=== PATIENT | female | born 1985 | race Caucasian/White ===

== ENCOUNTER 2023-03-11 09:13 | Outpatient (OUT) | payer OTHER, SELFPAY | END 2023-03-11 09:14 | disposition home or self-care (01) | PROVIDERS: PCP Family Medicine; Visit Provider Radiology Diagnostic Radiology | DX: I83.813 Varicose veins of bilateral lower extremities with pain (principal) ==

== ENCOUNTER 2023-03-18 09:35 | Outpatient (OUT) | payer OTHER, SELFPAY ==
--- NOTE | 2023-03-18 09:37 | VEIN_ITS ---
Patient: LAISHA RICH Exam Date: 03/18/2023 : 1985 Gender:F Ordering : DR IRVING DANG M.D. Admission #: [id number] Family : Order #: [id number] CLICK HERE TO VIEW EXAM RADIOLOGY REPORT PROCEDURE: VC EXT VENOUS REFLUX RAFAEL LMTD COMPARISON: None. INDICATIONS: Pain due to varicose veins of bilateral legs I83.813 TECHNIQUE: Duplex imaging of the lower extremity to assess the deep and superficial venous system for the presence of deep or superficial venous incompetence and to document the location and severity of disease. The study includes evaluation of the great saphenous vein (GSV), anterior accessory saphenous vein (AASV) and small saphenous vein (SSV). Patient scanned in reverse Trendelenburg and standing. FINDINGS: RIGHT LOWER EXTREMITY: Saphenofemoral Junction Reflux: Yes 8.2mm 4.4 sec GSV: Diam (mm) Reflux/ Time (sec) Proximal Thigh 7.5 Yes 3.6 Mid Thigh 4.1 Yes 3.4 Distal Thigh 5.2 Yes 4.7 Prox Calf 3.8 Yes 3.2 Mid Calf 3.8 Yes 1.7 Saphenopopliteal Junction Reflux: 6.1mm Yes 1.6 SSV: Proximal Calf 5.5 Yes 0.6 Mid Calf 4.5 Yes 0.3 AASV: Not present Thrombi: No acute or chronic thrombus. Compressibility: Normal. Flow: Moderate deep venous reflux. Preforator: Mid medial lower leg 5.1 mm with 0.8s reflux. Tech Note: Incompetent varicose vein distal medial thigh measures 5.2 mm with 2.5s reflux. Proximal posterior calf varicose vein measures 4.3 mm with 0.5s reflux. Proximal posterior calf varicose vein measures 6.3 mm with 0.9s reflux. LEFT LOWER EXTREMITY: Saphenofemoral Junction Reflux: Yes 9.7 mm 1.3 sec GSV: Diam (mm) Reflux/Time (sec) Proximal Thigh 8.4 Yes 4.2 Mid Thigh 6.2 Yes 2.9 Distal Thigh 3.9 Yes 0.5 Prox Calf 3.4 Yes 0.3 Mid Calf 3.4 Yes 2.1 Saphenopopliteal Junction Relux: 2.7 mm No SSV: Proximal Calf 3.7 No Mid Calf 4.0 Yes 0.6 AASV: Not present Thrombi: No acute or chronic thrombus. Compressibility: Normal. Flow: Mild deep venous reflux. Manipulative Therapy Specialist: None. Tech Note: Incompetent varicose vein mid medial thigh measures 4.7 mm with 0.7s reflux. Proximal medial lower leg varicose vein measures 4.1 mm with 4.7s reflux. Proximal posterior calf varicosity measures 3.5 mm with 1.6s reflux. CONCLUSION: 1. Severe bilateral great saphenous vein venous insufficiency with associated dilatation and saphenofemoral junction reflux 2. Minimal venous insufficiency bilateral small saphenous veins 3. Moderate right and mild left deep vein reflux 4. Bilateral incompetent varicose veins, moderate to severe Dictated by: Irving Dang MD on 03/18/2023 at 10:45 Approved by: Irving Dang MD on 03/18/2023 at 10:48
--- NOTE | 2023-03-18 09:37 | VEIN_ITS ---
Patient: LAISHA RICH Exam Date: 03/18/2023 : 1985 Gender:F Ordering : DR IRVING DANG M.D. Admission #: [id number] Family : Order #: [id number] CLICK HERE TO VIEW EXAM RADIOLOGY REPORT PROCEDURE: [facility] - OFFICE VISIT INITIAL COMPARISON: None. PROGRESS NOTES: A 7-year-old female who presents with a 2 year history of lower extremity pain swelling varicose veins and subcutaneous edema. The patient's symptoms are bilaterally symmetric. The patient describes the pain as aching burning and heaviness with edema that presents after prolonged standing. The patient rates the pain as a 4 on a scale of 1-10. 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 The patient's symptoms are partially relieved by rest, leg elevation, compression stockings and over the counter ibuprofen. The patient denies any signs and symptoms to suggest arterial ischemia. The patient describes a family history significant for varicose veins in her mother. Seizure disorder in her father. Heart disease maternal grandfather, cancer maternal aunt. G3P 2. The patient has not smoked for 11 years. Occasional social alcohol use. No illicit drug use. Current medical history is significant for seasonal allergies, migraine headaches. Past surgical history is significant for hysterectomy, salpingectomy, rotator cuff repair, cholecystectomy and 2 C-sections. No history of deep venous thrombus or pulmonary embolus. See separate history and physical for medication list. No prior treatment for varicose or spider veins. The patient has worn compression stockings for several years. Nursing notes reviewed. After history and physical exam I discussed at length the pathophysiology of venous hypertension and possible treatments, therapies and strategies available. We discussed at length the importance of elevating the lower extremities above the level of the heart, increased physical activity and compression stocking use. We discussed alternatives of including conservative treatment with bilateral thigh-high compression stockings, surgical interventions including ligation and stripping and phlebectomy. We discussed intravenous laser ablation, micro foam chemical ablation and injection sclerotherapy at length. Risks benefits and alternatives were discussed in the patient's questions were answered Ultrasound venous reflux study performed same day was discussed at length with the patient. The report demonstrates severe bilateral great saphenous vein venous insufficiency with dilatation and saphenofemoral junction reflux. Minimal bilateral small saphenous vein venous insufficiency. Bilateral deep vein reflux. Bilateral moderate to severe incompetent varicose veins PHYSICAL EXAM: The right leg demonstrates no significant varicose veins. Scattered spider in reticular veins. Minimal subcutaneous edema of the ankle. No active ulceration or skin discoloration. The left leg demonstrates no significant varicose veins. Scattered spider in reticular veins. Minimal subcutaneous edema of the ankle. No active ulceration or skin discoloration. Both thighs, legs and feet were symmetrically warm to the touch. Good posterior tibial and dorsalis pedis pulses were present bilaterally. IMPRESSION: 1. Severe bilateral great saphenous vein venous insufficiency with dilatation and saphenofemoral junction reflux 2. Moderate to severe bilateral lower extremity varicose veins 3. Minimal bilateral lower extremity subcutaneous edema 4. No definite flow significant arterial disease 5. CEAP: C3, Ep, As, Pr PLAN: 1. Endovenous laser ablation right great saphenous vein followed by the left great saphenous vein 2. Bilateral micro foam chemical injection of incompetent varicose veins 3. Long-term use of bilateral 20-30 mm knee and or thigh-high compression stockings 4. Elevated legs and increased physical activity symptomatic relief Nurse notes, history and physical were reviewed and confirmed, see attached forms. The nurse was present throughout the physical exam and consultation Dictated by: Irving Dang MD on 03/18/2023 at 12:42 Approved by: Irving Dang MD on 03/18/2023 at 12:52
== END 2023-03-18 09:36 | disposition home or self-care (01) ==
LOC: VC 09:35
PROVIDERS: PCP Radiology Diagnostic Radiology; Visit Provider Radiology Diagnostic Radiology
DX: I83.813 Varicose veins of bilateral lower extremities with pain (principal)
CPT/HCPCS: 93970; G0463

== ENCOUNTER 2023-04-08 13:26 | Outpatient (OUT) | payer OTHER, SELFPAY ==
--- NOTE | 2023-04-08 13:46 | XR_ITS ---
The [address] [address] Patient Name: LAISHA RICH MRN: [id number] date: 1985 Sex: F Assigned Patient Location: LAB Current Patient Location: LAB Accession/Order Number: [id number] Exam Date: 04/08/2023 13:50 Report Date: 04/08/2023 15:03 At the request of: CINTIA AVELAR Procedure: XR abdomen 1V EXAM: XR abdomen 1V HISTORY: Left Lower Quadrant Pain R10.32 COMPARISON: None. TECHNIQUE: AP view of the abdomen. FINDINGS: Nonobstructive bowel gas pattern is noted. There is no suspicious calcification. The osseous structures are intact. XR/XR abdomen 1V IMPRESSION: Nonobstructive bowel gas pattern. Electronically authenticated by: ZEYAD OWUSU Date: 04/08/2023 15:03
[2023-04-08 14:06] LABS: Basophils Percent Auto 0.3 % (0.2-2.0); Eosinophils Absolute Auto 0.1 10^3/uL (0.0-0.7); Eosinophils Percent Auto 1.9 % (0.9-7.0); Hematocrit 38.8 % (36.0-48.0); Hemoglobin 13.9 g/dL (12.0-16.0); Immature Granulocytes Abs Auto 0.01 10^3/uL (0.00-0.03); Immature Granulocytes Pct Auto 0.2 % (0.0-0.5); Lymphocytes Absolute Auto 1.7 10^3/uL (1.2-3.8); Lymphocytes Percent Auto 25.5 % (20.5-60.0); Mean Corpuscular HGB Conc 35.8 g/dL (29.9-35.2); Mean Corpuscular Hemoglobin 33.7 pg (26.7-34.0); Mean Corpuscular Volume 94.2 fL (81.0-99.0); Mean Platelet Volume 9.4 fL (9.5-13.5); Monocytes Absolute Auto 0.4 10^3/uL (0.3-0.8); Monocytes Percent Auto 6.2 % (1.7-12.0); Neutrophils Absolute Auto 4.3 10^3/uL (1.4-6.5); Neutrophils Percent Auto 65.9 % (43.0-75.0); Platelet Count 213 10^3/uL (150-450); Red Blood Count 4.12 10^6/uL (4.20-5.40); Red Cell Distribution Width 12.7 % (11.0-15.0); White Blood Count 6.5 10^3/uL (4.0-11.0)
[2023-04-08 14:11] LABS: Bilirubin Urine NEGATIVE (NEGATIVE); Blood Urine NEGATIVE (NEGATIVE); Clarity Urine CLEAR (CLEAR); Color Urine LT. YELLOW (YELLOW); Glucose Urine UA NEGATIVE (NEGATIVE); Ketones Urine NEGATIVE (NEGATIVE); Leukocyte Esterase Urine NEGATIVE (NEGATIVE); Nitrite Urine NEGATIVE (NEGATIVE); Protein Urine NEGATIVE (NEG/TRACE); Urobilinogen Urine 0.2 EU/dL (0.2-1.0)
[2023-04-08 14:14] LABS: Urine Microscopic Indicated NO
[2023-04-08 15:40] LABS: Alanine Aminotransferase 20 U/L (14-59); Albumin Globulin Ratio 1.4; Albumin Level 4.1 g/dL (3.4-5.0); Alkaline Phosphatase 62 U/L (46-116); Anion Gap 9.1; Aspartate Amino Transferase 15 U/L (15-37); BUN Creatinine Ratio 11.4; Bilirubin Total 0.6 mg/dL (0.2-1.0); Calcium 9.1 mg/dL (8.5-10.1); Carbon Dioxide 28.5 mmol/L (21.0-32.0); Chloride 102 mmol/L (98-107); Estimated GFR (African America >60 (>=60); Estimated GFR (Non-African Ame >60 (>=60); Glucose 103 mg/dL (74-106); Potassium 3.6 mmol/L (3.5-5.1); Sodium 136 mmol/L (136-145); Total Protein 7.1 g/dL (6.4-8.2)
[2023-04-08 15:56] LABS: C Reactive Protein <0.2 mg/dL (<=1.0)
== END 2023-04-08 13:27 | disposition home or self-care (01) ==
LOC: LAB 13:28
PROVIDERS: PCP Radiology Diagnostic Radiology; Visit Provider Nurse Practitioner Family
DX: R10.32 Left lower quadrant pain (principal); R35.0 Frequency of micturition
CPT/HCPCS: 36415; 74018; 80053; 81003; 85025; 86140

== ENCOUNTER 2023-05-20 10:24 | Outpatient (OUT) | payer OTHER, SELFPAY ==
--- NOTE | 2023-05-20 | VEIN_ITS ---
[address] [address] Patient Name: LAISHA RICH MRN: [id number] date: 1985 Sex: F Assigned Patient Location: Current Patient Location: Accession/Order Number: [id number] Exam Date: 05/20/2023 10:30 Report Date: 05/20/2023 11:48 At the request of: TK BARRERA Procedure: VC Endovenous Ablation 1VeinRT EXAMINATION: VC Endovenous Ablation 1Vein, right great saphenous vein HISTORY: Pain due to varicose veins of bilateral legs I83.813 COMPARISON: No relevant comparison available. TECHNIQUE: The risks and benefits of the procedure had been previously discussed, and were rediscussed at length. Informed written consent was obtained. Marycruz Leary and Fidel Christie assisted. Time out procedure was performed. The right lower extremity was prepared and draped in the usual sterile fashion to allow knee flexion in the sterile field. Duplex ultrasound probe was draped in a sterile cover, sterile transmission gel was used. Venous mapping was performed with the areas of dilation and large tributaries marked. The total length was 23 cm from the entry mid calf to 3 cm below the saphenofemoral junction. The diameter of the greater saphenous vein ranged from 5-8 mm. A 30 gauge needle and 1% buffered lidocaine was used to anesthetize the entry site. A 4 mm incision was made with a scalpel and the saphenous vein was entered percutaneously under direct ultrasound guidance with a micropuncture set, a single stick was successful in gaining access. The wire could not be advanced through an area of narrowing and subsequent re-access was performed at the level of the knee. A micro-guide wire was inserted and the needle removed. A micro-set including a dilator was inserted over the microwire and the needle and dilator were removed. A 0.018 guide wire was inserted through the micro-set and threaded through the saphenous vein to the saphenofemoral junction. The dilator was removed and an introducer sheath was inserted over the wire until the end of the sheath entered the saphenofemoral junction. The dilator and wire were removed and the 600 micron fiber was introduced and placed and positioned so that it extended beyond the sheath and was 3 cm peripheral to the saphenofemoral femoral junction. Final position of the fiber was determined by ultrasound guidance and duplex imaging. Tumescent anesthetic was delivered by ultrasound guidance. 200 cc of fluid was delivered along the entire course of the saphenous vein. The solution consisted of 1000 cc of normal saline with 40 mL of 1% lidocaine and 20 mL of sodium bicarbonate. A final positioning check was made. The energy source was turned on by means of the foot pedal and the fiber and sheath were withdrawn. The total number of Joules delivered was 1087. The laser was active for 136 seconds under continuous pulse, average laser use of 8 J. Laser start time 11:25 AM 05/20/2023 . Laser stop time 11:27 AM 05/20/2023 . A duplex ultrasound revealed compressibility and flow at the saphenofemoral junction immediately after the procedure. Hemostasis at the access site was achieved. The skin incision of the saphenous vein was closed with a 4 x 4. A compression stocking was applied. Postop instructions were given. A follow up appointment was recommended and scheduled. The patient tolerated the procedure well and was discharged in good condition . VEIN/VC Endovenous Ablation 1VeinRT IMPRESSION: Technically successful endovenous laser ablation right great saphenous vein Electronically authenticated by: TK BARRERA Date: 05/20/2023 11:48
[2023-05-20] MEDS: 0.9 % SODIUM CHLORIDE 500 ML, LIDOCAINE HCL 20 ML, SODIUM BICARBONATE 10 MEQ INJ (11:16)
== END 2023-05-20 10:25 | disposition home or self-care (01) ==
LOC: VC 10:24
PROVIDERS: PCP Radiology Diagnostic Radiology; Visit Provider Radiology Diagnostic Radiology
DX: I83.813 Varicose veins of bilateral lower extremities with pain (principal)
CPT/HCPCS: 36478

== ENCOUNTER 2023-05-26 13:22 | Outpatient (OUT) | payer OTHER, SELFPAY ==
--- NOTE | 2023-05-26 13:24 | VEIN_ITS ---
Patient: LAISHA RICH Exam Date: 05/26/2023 : 1985 Gender:F Ordering : DR IRVING DANG M.D. Admission #: [id number] Family : Order #: [id number] CLICK HERE TO VIEW EXAM RADIOLOGY REPORT PROCEDURE: VC EXT VENOUS RT LMTD COMPARISON: None. INDICATIONS: I80.01 Phlebitis of superficial veins of rt lower extremity TECHNIQUE: Lower extremity durand scale and Duplex Doppler evaluation of the deep venous system from the inguinal ligament through the calf veins. FINDINGS: REGION: Right lower extremity. THROMBI: Negative for DVT. Heat induced thrombus visualized 2.6cm from the SFJ. The thrombus extends from groin to distal thigh. COMPRESSIBILITY: Noncompressible segments corresponding to thrombus FLOW: Absent flow corresponding to thrombus CONCLUSION: Post ablation occlusion of the right great saphenous vein with heat induced thrombus 2.6 cm from the saphenofemoral junction Dictated by: Irving Dang MD on 05/26/2023 at 13:48 Approved by: Irving Dang MD on 05/26/2023 at 13:50
--- NOTE | 2023-05-26 13:24 | VEIN_ITS ---
Patient: LAISHA RICH Exam Date: 05/26/2023 : 1985 Gender:F Ordering : DR IRVING DANG M.D. Admission #: [id number] Family : Order #: [id number] CLICK HERE TO VIEW EXAM RADIOLOGY REPORT PROCEDURE: [facility]ILITY EST L[facility]D [facility] - OFFICE VISIT FOLLOW UP COMPARISON: None. PROGRESS NOTES: The patient reports improvement in leg symptoms. The patient had some mild pain of the medial right thigh following intravenous laser ablation of the right great saphenous vein, successfully treated with over the counter ibuprofen. The patient has worn her compression stockings. The patient has followed our recommendations to walk 20-30 minutes once or twice per day since the procedure. Physical exam demonstrates several areas of bruising the largest measuring 10 x 8 cm medial right thigh, slightly warm to the touch. This likely represents mild thrombophlebitis related to the procedure. Thrombosed right great saphenous vein can be partially palpated Review of the ultrasound performed the same day demonstrates occlusive thrombus extending throughout the treated right great saphenous vein. Heat induced thrombus is 2.6 cm from the saphenofemoral junction. The patient expressed a desire to proceed with treatment of incompetent left great saphenous vein. VEIN/VC Facility EST LMTD IMPRESSION: 1. Successful ablation of the right great saphenous vein 2. Persistent incompetent left great saphenous vein. PLAN: Intravenous laser ablation left great saphenous vein Nurse notes, history and physical were reviewed and confirmed, see attached forms. The nurse was present throughout the physical exam and consultation Dictated by: Irving Dang MD on 05/26/2023 at 13:56 Approved by: Irving Dang MD on 05/26/2023 at 13:58
== END 2023-05-26 13:23 | disposition home or self-care (01) ==
LOC: VC 13:22
PROVIDERS: PCP Radiology Diagnostic Radiology; Visit Provider Radiology Diagnostic Radiology
DX: I80.01 Phlebitis and thrombophlebitis of superficial vessels of right lower extremity (principal)
CPT/HCPCS: 93971; G0463

== ENCOUNTER 2023-09-02 14:09 | Outpatient (OUT) | payer OTHER, SELFPAY ==
--- NOTE | 2023-09-02 14:23 | VEIN_ITS ---
[address] [address] Patient Name: LAISHA RICH MRN: [id number] date: 1985 Sex: F Assigned Patient Location: Current Patient Location: Accession/Order Number: [id number] Exam Date: 09/02/2023 14:23 Report Date: 09/02/2023 16:08 At the request of: TK BARRERA Procedure: VC Endovenous Ablation 1VeinLT EXAMINATION: VC Endovenous Ablation 1VeinLT HISTORY: I83.813 Bilateral painful varicose veins The risks and benefits of the procedure had been previously discussed, and were rediscussed at length. Informed written consent was obtained. Fidel Christie RN and Georgie Hester RDMS, RVT assisted. Time out procedure was performed. The left lower extremity was prepared and draped in the usual sterile fashion to allow knee flexion in the sterile field. Duplex ultrasound probe was draped in a sterile cover, sterile transmission gel was used. Venous mapping was performed with the areas of dilation and large tributaries marked. The total length was 71 cm from the entry 3 cm above the ankle to 3 cm below the Saphenofemoral junction. The diameter of the left great saphenous vein ranged from 8.4 mm. A 30 gauge needle and 1% buffered lidocaine was used to anesthetize the entry site. A 4 mm incision was made with a scalpel and the saphenous vein was entered percutaneously under direct ultrasound guidance with a micropuncture set, a single stick was successful in gaining access. A micro-guide wire was inserted and the needle removed. A micro-set including a dilator was inserted over the microwire and the needle and dilator were removed. A guide wire was inserted through the micro-set and guided through the saphenous vein to the saphenofemoral junction. The dilator was removed and an introducer sheath was inserted over the wire until the end of the sheath entered the saphenofemoral junction. The dilator and wire were removed and the 600 micron fiber was introduced and placed and positioned so that it extended beyond the sheath and was 3 cm distal to the saphenofemoral or saphenopopliteal junction. Final position of the fiber was determined by ultrasound guidance and duplex imaging. Tumescent anesthetic was delivered by ultrasound guidance. 475 cc of fluid was delivered along the entire course of the saphenous vein. The solution consisted of 1000 cc of normal saline with 40 mL of 1% lidocaine and 20 mL of sodium bicarbonate. A final positioning check was made. The energy source was turned on by means of the foot pedal and the fiber and sheath were withdrawn. The total number of Joules delivered was 3436. The laser was active for 429 seconds under continuous pulse, average laser use of 8 J. Laser start time 3:19 PM, 09/02/2023. Laser stop time 3:27 PM, 09/02/2023. A duplex ultrasound revealed compressibility and flow at the saphenofemoral junction immediately after the procedure. Hemostasis at the access site was achieved. The skin incision of the saphenous vein was closed with a 4 x 4. A compression stocking was applied. Postop instructions were given. A follow up appointment was recommended and scheduled. The patient tolerated the procedure well. Electronically authenticated by: KATIE LOPEZ Date: 09/02/2023 16:08
[2023-09-02] MEDS: LIDOCAINE HCL 1% 100 MG/10 ML MDV INJ (14:46)
[2023-09-02] MEDS: 0.9 % SODIUM CHLORIDE 500 ML, LIDOCAINE HCL 20 ML, SODIUM BICARBONATE 10 MEQ INJ (14:48)
== END 2023-09-02 14:10 | disposition home or self-care (01) ==
LOC: VC 14:22
PROVIDERS: PCP Radiology Diagnostic Radiology; Visit Provider Radiology Diagnostic Radiology
DX: I83.813 Varicose veins of bilateral lower extremities with pain (principal)
CPT/HCPCS: 36478

== ENCOUNTER 2023-09-10 09:26 | Outpatient (OUT) | payer OTHER, SELFPAY ==
--- NOTE | 2023-09-10 09:28 | VEIN_ITS ---
Patient Name: LAISHA RICH MR#: [id number] : 1985 Exam Date: 09/10/2023 Ordering Doctor: DR TK BARRERA M.D. RADIOLOGY REPORT PROCEDURE: VC EXT VENOUS LT LIMITED COMPARISON: None. INDICATIONS: Phlebitis of superficial veins of lt lower extremity I80.02 TECHNIQUE: Lower extremity durand scale and Duplex Doppler evaluation of the deep venous system from the inguinal ligament through the calf veins. FINDINGS: REGION: Left lower extremity. THROMBI: Negative for DVT. Heat induced thrombus visualized 2.7cm from SFJ. The heat induced thrombus extends from groin to distal calf. COMPRESSIBILITY: Non-compressible segments corresponding to thrombus FLOW: Areas of no flow corresponding to thrombus OTHER: CONCLUSION: 1. Successful post ablation occlusion of left great saphenous vein. Dictated by: Gibran Slater M.D. on 09/10/2023 at 10:18 Approved by: Gibran Slater M.D. on 09/10/2023 at 10:19
--- NOTE | 2023-09-10 09:28 | VEIN_ITS ---
Patient Name: LAISHA RICH MR#: [id number] : 1985 Exam Date: 09/10/2023 Ordering Doctor: DR TK BARRERA M.D. RADIOLOGY REPORT PROCEDURE: [facility] - OFFICE VISIT FOLLOW UP [facility] PROGRESS NOTES: The patient reports some improvement in leg symptoms. Patient also describes numbness along anterior medial margin of distal lower extremity, and tenderness/pulling sensation in proximal thigh. There has been interval reduction in varicosities. The patient has followed our recommendations to walk 20-30 minutes once or twice per day since the procedure. Physical exam demonstrates decrease in varicosities of the leg. Persistent superficial varicosities are identified along the legs bilaterally. Review of the ultrasound performed the same day demonstrates occlusive thrombus extending throughout the treated vein(s), see separate report, consistent with a successful ablation. No thrombus extending into or beyond the saphenofemoral junction. The patient's insurance did not approve any additional treatments (specifically microfoam chemical ablation). Patient was informed of remaining branch saphenous varicosities and will follow-up with us in the future as needed or with change in insurance coverage. VEIN/[facility] EST TD IMPRESSION: 1. Successful ablation of the left great saphenous vein(s). 2. Persistent superficial varicose veins and mild lower extremity symptoms. PLAN: Follow-up in future as needed. Nurse notes, history and physical were reviewed and confirmed, see attached forms. The nurse was present throughout the physical exam and consultation Dictated by: Gibran Slater M.D. on 09/10/2023 at 10:19 Approved by: Gibran Slater M.D. on 09/10/2023 at 10:23
--- OUTSIDE RECORDS SUMMARY | 2023-09-10 10:37 | XMS_ITS | CCD ---
Author Name Unknown Address [address] [facility] [address] [place] [address] Organization [facility] Care Team Providers Care Seed Cutter Name Role Phone Dubon, Migel T. Unavailable Unavailable Dubon, Migel T. Unavailable Unavailable Dubon, Migel T. Unavailable Unavailable Hoy, [phone] UNKNOWN Unavailable Unavailable Dubon, Migel T. Unavailable Unavailable Dubon, Migel T. Unavailable Unavailable Dubon, Migel T. Unavailable Unavailable Hoy, [phone] UNKNOWN Unavailable Unavailable PAY, DR GOMEZ Attending Unavailable ZIEBER, DR KATIE David Consulting Unavailable PAY, DR GOMEZ Admitting Unavailable HOY, DR PROCTOR Primary Care Unavailable PAY, DR GOMEZ Consulting Unavailable HOY, DR PROCTOR Admitting Unavailable HOY, DR PROCTOR Attending Unavailable HOY, DR PROCTOR Consulting Unavailable HOY, DR PROCTOR Primary Care Unavailable ZIEBER, DR KATIE David Consulting Unavailable HOY, DR PROCTOR Primary Care Unavailable HOY, DR PROCTOR Admitting Unavailable HOY, DR PROCTOR Attending Unavailable HOY, DR PROCTOR Consulting Unavailable HOY, DR PROCTOR Primary Care Unavailable CINTIA AVELAR Admitting Unavailable CINTIA AVELAR Attending Unavailable CINTIA AVELAR Consulting Unavailable PAO, DR PROCTOR Primary Care Unavailable HOY, DR PROCTOR Admitting Unavailable HOY, DR PROCTOR Attending Unavailable HOY, DR PROCTOR Consulting Unavailable HOY, DR PROCTOR Primary Care Unavailable PAO, DR PROCTOR Admitting Unavailable PAO, DR PROCTOR Attending Unavailable HOY, DR PROCTOR Consulting Unavailable CINTIA AVELAR Admitting Unavailable MERLYNY, DR PROCTOR Primary Care Unavailable CINTIA AVELAR Attending Unavailable CINTIA AVELAR Consulting Unavailable Problems Active Problems Problem Classification Problem Date Documented Da te Episodic/Chronic Joint disorders and dislocations; trauma-related (4 sources) Unspecified internal derangement of unspecified knee; Translations: [UNS INTERNAL DERANGEMENT UNS KNEE] Onset: 09-02-2021 Chronic Other circulatory disease (1 source) Other specified symptoms and signs involving the circulatory and respiratory systems; Translations: [OTH SPEC SX SIGNS INVLV CIRC RS] Onset: 04-09-2022 Episodic Other upper respiratory infections (1 source) Chronic sinusitis, unspecified; Translations: [CHRONIC SINUSITIS UNSPECIFIED] Onset: 01-03-2022 Chronic Other upper respiratory infections (4 sources) Acute recurrent frontal sinusitis; Translations: [ACUTE RECURRENT FRONTAL SINUSITIS] Onset: 06-04-2022 Episodic Unclassified (4 sources) CONTACT W/AND (SUSP) EXPOS COVID-19; Translations: [CONTACT W/AND (SUSP) EXPOS COVID-19] Onset: 10-08-2021 Unclassified (1 source) COUGH, UNSPECIFIED; Translations: [COUGH, UNSPECIFIED] Onset: 04-09-2022 Viral infection (1 source) COVID-19; Translations: [COVID-19] Onset: 04-09-2022 Past or Other Problems Problem Classification Problem Date Documented Da te Episodic/Chronic Fever of unknown origin (4 sources) Fever, unspecified; Translations: [FEVER UNSPECIFIED] Onset: 01-01-2022 Episodic Residual codes; unclassified (1 source) Pain, unspecified; Translations: [PAIN UNSPECIFIED] Onset: 10-03-2021 Episodic Unclassified (1 source) CONTACT W/AND (SUSP) EXPOS COVID-19; Translations: [CONTACT W/AND (SUSP) EXPOS COVID-19] Onset: 04-08-2022 Results Test Name Value Interpretation Reference Range Facility CT HEAD WO CONon 06-16-2022 CT HEAD WO CON EXAMINATION: CT HEAD WO CON HISTORY: HEADACHE ; head butted on nose 2 days ago COMPARISON: No relevant comparison available. TECHNIQUE: Axial CT images were obtained without IV contrast. Dose reduction techniques were achieved by using automated exposure control and/or adjustment of mA and/or kV according to patient size and/or use of iterative reconstruction technique. FINDINGS: BRAIN: No edema, hemorrhage, mass, acute infarction, or inappropriate atrophy. CSF SPACES: No hydrocephalus, subarachnoid hemorrhage, or mass. Appropriate for age. SKULL: No fracture, mass, or other significant visible lesion. SINUSES: No significant mucosal thickening or fluid on the limited views. ORBITS: No appreciable abnormality on the limited views. OTHER: Negative IMPRESSION: 1. No acute or suspicious abnormality of the brain. 2. No fracture of the calvarium or scalp hematoma. 3. Clear sinuses. Electronically authenticated by: KATIE LOPEZ Date: 2022-06-16 11:39 Normal [facility] Covid-19 PCR (CVDTB)on 05-22 SARS-CoV-2 (COVID-19) RNA ALEJANDRINA+probe Ql (Unsp spec) Not detected Normal NOT DETECTED [facility] Comment on above: Result Comment: This test is not yet kuldip roved or cleared by the [place] FDA. When there are no FDA-approved or cleared tests available, and other criteria are met, FDA can make tests available under an emergency access mechanism called an Emergency Use Authorization (EUA). The EUA for this test is supported by the Commander Internal Affairs of Health and Human Service's (HHS's) declaration that circumstances exist to justify the emergency use of in vitro diagnostics for the detection and/or diagnosis of the virus that causes COVID-19. This EUA will remain in effect (meaning this test can be used) for the duration of the COVID-19 declaration justifying emergency of IVDs, unless it is terminated or revoked by FDA (after which the test may no longer be used). When diagnostic testing is negative, the possibility of a false negative should be considered in the context of a patient's recent exposures and the presence of clinical signs and symptoms consistent with SARS-CoV-2. Performed By: #### C [facility] #### [facility] [address] [place] [address] Dr. Negrita Dao Covid-19 PCR (CVDTB)on 03-21 SARS-CoV-2 (COVID-19) RNA ALEJANDRINA+probe Ql (Unsp spec) Detected Critically abnormal NOT DETECTED [facility] Comment on above: Result Comment: This test is not yet kuldip roved or cleared by the [place] FDA. When there are no FDA-approved or cleared tests available, and other criteria are met, FDA can make tests available under an emergency access mechanism called an Emergency Use Authorization (EUA). The EUA for this test is supported by the [place] of Health and Human Service's declaration that circumstances exist to justify the emergency use of in vitro diagnostics for the detection and/or diagnosis of the virus that causes COVID-19. This EUA will remain in effect for the duration of the COVID-19 declaration justifying emergency of IVDs, unless it is terminated or revoked by the FDA (after which the test may no longer be used). Performed By: #### C V[facility] #### [facility] [address] [place] [address] Dr. Negrita Dao INFLUENZA A AND B AGon 03-21 INFLUENZA A AG Negative Normal NEGATIVE SEE COMMENT [facility] Comment on above: Performed By: #### INFLUAB #### [facility] [address] [place] [address] Dr. Negriat Dao INFLUENZA B AG Negative Normal NEGATIVE SEE COMMENT [facility] Comment on above: Performed By: #### INFLUAB #### [facility] [address] [place] [address] Dr. Negrita Dao INTERNAL CONTROLS Within Normal Limits Normal Within Normal Limits [facility] Comment on above: Performed By: #### INFLUAB #### [facility] [address] [place] [address] Dr. Negrita Dao Covid-19 PCR (CVDTB)on 12-20 SARS-CoV-2 (COVID-19) RNA ALEJANDRINA+probe Ql (Unsp spec) Not detected Normal NOT DETECTED [facility] Comment on above: Result Comment: This test is not yet kuldip roved or cleared by the [place] FDA. When there are no FDA-approved or cleared tests available, and other criteria are met, FDA can make tests available under an emergency access mechanism called an Emergency Use Authorization (EUA). The EUA for this test is supported by the [place] of Health and Human Service's (HHS's) declaration that circumstances exist to justify the emergency use of in vitro diagnostics for the detection and/or diagnosis of the virus that causes COVID-19. This EUA will remain in effect (meaning this test can be used) for the duration of the COVID-19 declaration justifying emergency of IVDs, unless it is terminated or revoked by FDA (after which the test may no longer be used). When diagnostic testing is negative, the possibility of a false negative should be considered in the context of a patient's recent exposures and the presence of clinical signs and symptoms consistent with SARS-CoV-2. Performed By: #### C VDTBH #### [facility] [address] [place] [address] Dr. Negrita Dao INFLUENZA A AND B AGon 01-01 [facility] SEE BELOW Normal [facility] Comment on above: Result Comment: Negative for Flu A prote in angiten. Infection due to Flu A cannot be ruled out. Flu A angiten in the sample may be below the detection limit of the test. Performed By: #### I NFLUAB #### [facility] [address] [place] [address] Dr. Negrita Dao INFLUBNEG SEE BELOW Normal [facility] Comment on above: Result Comment: Negative for Flu B prote in antigen. Infection due to Flu B cannot be ruled out. Flu B antigen in the sample may be below the detection limit of the test. Performed By: #### I NFLUAB #### [facility] [address] [place] [address] Dr. Negrita Dao INFLUENZA A AG Negative Normal NEGATIVE SEE COMMENT [facility] Comment on above: Performed By: #### INFLUAB #### [facility] [address] [place] [address] Dr. Negrita Dao INFLUENZA B AG Negative Normal NEGATIVE SEE COMMENT [facility] Comment on above: Performed By: #### INFLUAB #### [facility] [address] [place] [address] Dr. Negrita Dao INTERNAL CONTROLS Within Normal Limits Normal Within Normal Limits [facility] Comment on above: Performed By: #### INFLUAB #### [facility] [address] [place] [address] Dr. Negrita Dao Covid-19 PCR (CVDTB)on 09-21 SARS-CoV-2 (COVID-19) RNA ALEJANDRINA+probe Ql (Unsp spec) Not detected Normal NOT DETECTED [facility] Comment on above: Result Comment: This test is not yet kuldip roved or cleared by the [place] FDA. When there are no FDA-approved or cleared tests available, and other criteria are met, FDA can make tests available under an emergency access mechanism called an Emergency Use Authorization (EUA). The EUA for this test is supported by the [employer] of Health and Human Service's (HHS's) declaration that circumstances exist to justify the emergency use of in vitro diagnostics for the detection and/or diagnosis of the virus that causes COVID-19. This EUA will remain in effect (meaning this test can be used) for the duration of the COVID-19 declaration justifying emergency of IVDs, unless it is terminated or revoked by FDA (after which the test may no longer be used). When diagnostic testing is negative, the possibility of a false negative should be considered in the context of a patient's recent exposures and the presence of clinical signs and symptoms consistent with SARS-CoV-2. Performed By: #### C VDTB #### [facility] [address] [place] [address] Dr. Negrita Dao Covid-19 PCR ([facility])on 09-21 SARS-CoV-2 (COVID-19) RNA ALEJANDRINA+probe Ql (Unsp spec) Not detected Normal NOT DETECTED [facility] Comment on above: Result Comment: This test is not yet kuldip roved or cleared by the [place] FDA. When there are no FDA-approved or cleared tests available, and other criteria are met, FDA can make tests available under an emergency access mechanism called an Emergency Use Authorization (EUA). The EUA for this test is supported by the [place] of Health and Human Service's (HHS's) declaration that circumstances exist to justify the emergency use of in vitro diagnostics for the detection and/or diagnosis of the virus that causes COVID-19. This EUA will remain in effect (meaning this test can be used) for the duration of the COVID-19 declaration justifying emergency of IVDs, unless it is terminated or revoked by FDA (after which the test may no longer be used). When diagnostic testing is negative, the possibility of a false negative should be considered in the context of a patient's recent exposures and the presence of clinical signs and symptoms consistent with SARS-CoV-2. Performed By: #### C VDTBH #### [facility] [address] [place] [address] Dr. Negrita Dao Progress Note-Physicianon Progress Note-Physician Patient: KATHY RICH Age: 32 years Sex: Female : 1985 Associated Diagnoses: None Author: Douglas Joe JR, DO Postoperative Information Post Operative Note: Post Anesthesia Care Unit. Anesthetic utilized: General, Monitored anesthesia care. Health Status Allergies: Allergic Reactions (Selected)No Known Allergies Current medications: (Selected) PrescriptionsPrescribedPercocet 325 mg-5 mg Tab: 2 tab(s), Oral, q4hr, 50 tab(s), Refill(s) 0, ICD 10# M75.41 one to two po every 4 hour prn painDocumented MedicationsDocumentedImitrex: 100 mg, Oral, Once, PRN Migraine headache, Refills(s) 0, Migraine headacheibuprofen 200 mg oral capsule: 600 mg = 3 cap(s), Oral, BID, PRN as needed for pain, Refills(s) 0, Pain Problem list: All ProblemsRotator cuff tear, right / SNOMED CT 8838020215 / ConfirmedMigraines / SNOMED CT 76728299 / Confirmed Physical Examination Intake and Output Denies significant n/v and is tolerating p.o. No qualifying data available Respiratory: Adequate air exchange with faith of preoperative function.. Cardiovascular: Cardiovascular function is stable and has returned to preoperative levels.. Neurologic: Pt has returned to preoperative baseline.. Review / Management Condition: Stable. Assessment Anesthetic outcome No anesthetic complications noted. Plan Transfer/ Discharge: Patient can be discharged from PACU when criteria met. Condition good. Normal [facility] Comment on above: Result Comment: Electronically Signed By : Douglas Joe JR, DO\.br\Date and Time Signed: 10/15/17 12:30 EST Progress Note-Physician Patient: KATHY RICH Age: 32 years Sex: Female : 1985 Associated Diagnoses: None Author: Douglas Joe JR, DO Postoperative Information Post Operative Note: Post Anesthesia Care Unit. Anesthetic utilized: General, Monitored anesthesia care. Health Status Allergies: Allergic Reactions (Selected)No Known Allergies Current medications: (Selected) Inpatient IszomnspldpFrcnetvH6JP 1000 mL Soln-IV 1,000 mL: 1,000 mL, IV, 150 mL/hr, Routine, Start date 10/13/17 10:00:00 EST, 6.7 hour(s), Total volume (mL): 1,000Dilaudid 2 mg Injection: 0.4 mg = 0.2 mL, Injection, IV Push, q4min PRN Pain for 8 hour(s), Stop date 10/13/17 20:31:00 EST, Routine, Start date 10/13/17 12:32:00 ESTDilaudid 2 mg Injection: 1 mg = 0.5 mL, Injection, IV Push, q2hr PRN Pain - Severe for 5 day(s), Stop date 10/18/17 9:29:00 EST, Routine, Start date 10/13/17 9:30:00 ESTLactated Ringers IV Luana 1000 mL 1,000 mL: 1,000 mL, IV, 100 mL/hr, Routine, Start date 10/13/17 12:32:00 EST, 10 hour(s), Total volume (mL): 1,000Percocet 325 mg-5 mg Tab: 1 tab(s), Tab, Oral, q6hr PRN Pain - Moderate for 5 day(s), Stop date 10/18/17 9:29:00 EST, Routine, Start date 10/13/17 9:30:00 ESTPercocet 325 mg-5 mg Tab: 2 tab(s), Tab, Oral, q6hr PRN Pain - Moderate for 5 day(s), Stop date 10/18/17 9:29:00 EST, Routine, Start date 10/13/17 9:30:00 ESTPhenergan 25 mg/mL Injection: 12.5 mg = 0.5 mL, Injection, IV Push, q2min PRN Other (see comment) for 2 dose(s), Stop date Limited # of times, Routine, Start date 10/13/17 12:32:00 ESTZofran 4 mg/2 mL Injection: 4 mg = 2 mL, Injection, IV Push, q4hr PRN Nausea/Vomiting, Routine, Start date 10/13/17 9:30:00 ESTPrescriptionsPrescribedPercocet 325 mg-5 mg Tab: 2 tab(s), Oral, q4hr, 50 tab(s), Refill(s) 0, ICD 10# M75.41 one to two po every 4 hour prn painDocumented MedicationsDocumentedImitrex: 100 mg, Oral, Once, PRN Migraine headache, Refills(s) 0, Migraine headacheibuprofen 200 mg oral capsule: 600 mg = 3 cap(s), Oral, BID, PRN as needed for pain, Refills(s) 0, Pain Problem list: All ProblemsRotator cuff tear, right / SNOMED CT 9618802429 / ConfirmedMigraines / SNOMED CT 98418556 / Confirmed Physical Examination Intake and Output Denies significant n/v and is tolerating p.o. Vitals Signs (last 24 hrs) Last Charted Minimum MaximumTemp 36.9 (OCT 13 10:20) 36.9 (OCT 13 10:20) 36.9 (OCT 13 10:20)Heart Rate 67 (OCT 13 11:54) 67 (OCT 13 11:54) 77 (OCT 13 10:22)Resp Rate 18 (OCT 13 10:22) 18 (OCT 13 10:22) 18 (OCT 13 10:22)SBP 121 (OCT 13 10:24) 121 (OCT 13 10:24) 137 (OCT 13 10:20)DBP 79 (OCT 13 10:24) 79 (OCT 13 10:24) 86 (OCT 13 10:20)MAP 93 (OCT 13 10:24) 93 (OCT 13 10:24) 103 (OCT 13 10:20)SpO2 99 (OCT 13 11:54) 97 (OCT 13 10:22) 100 (OCT 13 11:37) Pain assessment: Pain Assessment 10/13/2017 10:22 EST Preliminary Pain Scale 4 10/13/2017 10:22 EST Pain Symptoms Self Report Yes, able to self report Primary Pain Location Shoulder Primary Pain Laterality Right Patient Preferred Pain Tool Numeric rating Numeric Pain Scale 4 Numeric Pain Score 4 . Respiratory: Adequate air exchange with faith of preoperative function.. Cardiovascular: Cardiovascular function is stable and has returned to preoperative levels.. Neurologic: Pt has returned to preoperative baseline.. Review / Management Condition: Stable. Assessment Anesthetic outcome No anesthetic complications noted. Plan Transfer/ Discharge: Patient can be discharged from PACU when criteria met. Condition good. Normal Jonnathan david [facility] Coding Summary.on 10-14-2017 Coding Summary. CODING DATE: 018 FINAL [facility] STATUS: Home (Routine DC) PAYOR: Worker's Compensation APC DESCRIPTION 5113 Level 3 Musculoskeletal Procedures ADMIT DX: REASON FOR VISIT DX: M75.101 Unspecified rotator cuff tear or rupture of right shoulder, not specified as traumatic FINAL DX: PRINCIPAL: S46.011A Strain of muscle(s) and tendon(s) of the rotator cuff of right shoulder, initial encounter SECONDARY: M75.41 Impingement syndrome of right shoulder X58.XXXA Exposure to other specified factors, initial encounter Y99.0 Civilian activity done for income or pay PYMT PROC APC STAT DESCRIPTION DOCTOR NAME DATE 72603 Arthroscopy, shoulder, Migel Dubon DO T. 10/13/2017 surgical; decompression of subacromial space with partial acromioplasty, with coracoacromial ligament (ie, arch) release, when performed (List separately in addition to code for primary procedure) RT Right side (used to identify procedures performed on the right side of the body) 41925 5113 J1 Arthroscopy, shoulder, Migel Dubon DO T. 10/13/2017 surgical; distal claviculectomy including distal articular surface (Annalisa procedure) RT Right side (used to identify procedures performed on the right side of the body) 97985 5113 J1 Arthroscopy, shoulder, Migel Dubon DO T. 10/13/2017 surgical; debridement, extensive RT Right side (used to identify procedures performed on the right side of the body) 50730 Injection, anesthetic Migel Dubon DO 10/13/2017 agent; brachial plexus, single RT Right side (used to identify procedures performed on the right side of the body) XP Separate Practitioner * 28493 Anesthesia for open or Migel Dubon DO. 10/13/2017 surgical arthroscopic procedures on humeral head and neck, sternoclavicular joint, acromioclavicular joint, and shoulder joint; not otherwise specified NOTE: The code number assigned matches the documented diagnosis and / or procedure in the patient's chart. However, the narrative phrase printed from the coding software may appear abbreviated, or result in slightly different terminology. Coded By: Giovanna Barbosa Date Saved: 10/14/2017 04:00 pm Normal [facility] Coding Summary.on 10-13-2017 Coding Summary. CODING DATE: 018 FINAL [facility] STATUS: Home (Routine DC) PAYOR: Worker's Compensation ADMIT DX: REASON FOR VISIT DX: Z01.818 Encounter for other preprocedural examination FINAL DX: PRINCIPAL: Z01.818 Encounter for other preprocedural examination SECONDARY: PROCEDURES DOCTOR NAME DATE NOTE: The code number assigned matches the documented diagnosis and / or procedure in the patient's chart. However, the narrative phrase printed from the coding software may appear abbreviated, or result in slightly different terminology. Coded By: Britany Kelley Date Saved: 10/13/2017 07:55 am Normal [facility] Inpatient Patient Summaryon 10-13-2017 Inpatient [facility] Dis[facility] InstructionsPERSON INFORMATION Name: KATHY RICH PHYSICIANS Admitting Physician: Migel Dubon DOAttending Physician: Migel Dubon DO PCP: Carlyn Cooper MD Diagnosis: Impingement syndrome of right shoulder Comment: PATIENT EDUCATION INFORMATIONInstructions:Ling - After Your Shoulder Arthroscopy (Revised 10/19/14) (CUSTOM)Medication Leaflets:Follow up:With: Address: When: Migel Dubon [address] [place] [address] Stampt (1) Comments: Keep scheduled appointment MEDICATION LISTFill New Prescriptions:acetaminophen-oxycodo ne (Percocet 325 mg-5 mg Tab) 2 tab(s) By Mouth every 4 hours ICD 10# M75.41 one to two po every 4 hour prn painComment: Normal [facility] Main OR Intraoperative Recor don 10-13-2017 Main OR Intraoperative Record IntraOp Document Type FT Summary Primary Physician: Migel Dubon DO Finalized Date/Time: 10/13/17 14:31:35 Pt. Name: HILARIOMIKE ARENASMELODY Michaels/Sex: 1985 Female Med Rec #: [id number] Physician: Migel Dubon DO Financial #: [id number] Pt. Type: A Room/Bed: [facility]6/01 Admit/Disch: 10/13/17 10:08:27 - Institution: Case Times FT Entry 1 Patient Times In Room 10/13/17 11:58:00 Out Room 10/13/17 12:49:00 Procedure Times Start 10/13/17 12:22:00 Stop 10/13/17 12:44:00 Anesthesia Times Start 10/13/17 11:58:00 Stop 10/13/17 12:50:00 Block Timeout w/ 10/13/17 11:37:00 Anesthesia Last Modified By: Iesha Barrios CST 10/13/17 12:50:02 General Comments: 10/13/2017 Chart opened to review and send charges Sara jacobson Case Attendance FT Entry 1 Entry 2 Entry 3 Case Attendee Tatyana CORONADO DO, Douglas Dubon DO, Migel White DO, Irving Spence Role Performed Anesthesiologist of Surgeon - Primary Surgeon - Assist 1 Record Time In 10/13/17 11:58:00 10/13/17 11:58:00 10/13/17 11:58:00 Time Out 10/13/17 12:49:00 10/13/17 12:49:00 10/13/17 12:49:00 Procedure SHOULDER ARTHROSCOPY W/ SHOULDER ARTHROSCOPY W/ SHOULDER ARTHROSCOPY W/ POSSIBLE REPAIR(Right) POSSIBLE REPAIR(Right) POSSIBLE REPAIR(Right) Comments Last Modified By: Rashad RN, Mendel Solorzano RN, Mendel Flores RN 10/13/17 12:50:05 10/13/17 12:50:05 10/13/17 12:50:05 Entry 4 Entry 5 Entry 6 Case Attendee Rashad ABDUL, Mendel Rao RN, Una Cooper CST Role Performed Motorized Squad Captain - Primary Motorized Squad Captain - Primary Scrub - Primary Time In 10/13/17 11:58:00 10/13/17 11:58:00 10/13/17 11:58:00 Time Out 10/13/17 12:49:00 10/13/17 12:49:00 10/13/17 12:49:00 Procedure SHOULDER ARTHROSCOPY W/ SHOULDER ARTHROSCOPY W/ SHOULDER ARTHROSCOPY W/ POSSIBLE REPAIR(Right) POSSIBLE REPAIR(Right) POSSIBLE REPAIR(Right) Comments Last Modified By: Rashad ABDUL, Mendel Solorzano RN, Mendel Flores RN 10/13/17 12:50:05 10/13/17 12:50:05 10/13/17 12:50:05 General Comments: JUAN ALBERTO ROCHA, ARTHREX REP Perioperative Protocols FT Pre-Care Text: Implements protective measures prior to operative or invasive procedure, confirms identity before the operative or invasive procedure, verifies operative procedure, surgical site, and laterality Entry 1 Procedure(s) SHOULDER ARTHROSCOPY W/ Patient Identity Birthday, ID Band POSSIBLE REPAIR(Right) Verified (select at Check, Patient least 2): Participation Consents / H and P Anesthesia Consent, Operative Site Present Verified HandP, Surgery/Procedure Marking Verified Consent, Transfusion Consent Surgical Site Yes Laterality Verified Yes Verified Procedure Verified Yes Correct Patient Yes Position Verified Availability Equipment, Implant, Prep Dry Yes Verified (If Medication Applicable) PreOp Antibiotic Yes Time Out Douglas Joe JR, DO, Migel Dubon DO, Irving White DO, Lunato RN, Jalen Hale RN, Shabbir Vital CST, Una Time Out Complete 10/13/17 12:15:00 Outcomes Met? Yes Last Modified By: Mendel Solorzano RN 10/13/17 12:16:17 Post-Care Text: The patient is free from signs and symptoms of injury caused by extraneous objects Allergy Information FT Pre-Care Text: Verifies allergies Entry 1 Allergies Reviewed? Yes Allergies Reviewed Self/Patient With Outcomes Met? Yes Last Modified By: Mendel Solorzano RN 10/13/17 11:41:45 Post-Care Text: The patient received appropriate medication(s) safely administered during the perioperative period Surgical Procedures FT Entry 1 Procedure Description Procedure SHOULDER ARTHROSCOPY W/ Modifiers Right POSSIBLE REPAIR Surgeon Description RIGHT SHOULDER ARTHROSCOPY, SUBACROMIAL DECOMPRESSION, DEBRIDEMENT AND PARTIAL DISTAL CLAVICULECTOMY Primary Procedure Yes Primary Surgeon Migel Dubon DO Start 10/13/17 12:22:00 Stop 10/13/17 12:44:00 Anesthesia Type General Surgical Service Orthopedics Wound Class 1 - Clean Last Modified By: Mendel Solorzano RN 10/13/17 12:55:55 General Case Data FT Pre-Care Text: Classifies surgical wound, implements aseptic technique, initiates traffic control Entry 1 Case Information OR OR 4 FT Case Level Level 2 Wound Class 1 - Clean Specialty Orthopedics ASA Class 1 Preop Diagnosis RIGHT SHOULDER PARTIAL Postop Same As Preop Yes ROTATOR CUFF TEAR Postop Diagnosis RIGHT SHOULDER PARTIAL Outcomes Met? Yes ROTATOR CUFF TEAR Last Modified By: Mendel Solorzano RN 10/13/17 12:57:34 Post-Care Text: The patient is free from signs and symptoms of infection Skin Assessment (Pre Procedure) FT Pre-Care Text: Implements protective measures to prevent skin/ tissue injury due to thermal or mechanical sources Evaluates for signs and symptoms of physical injury to skin and tissue Entry 1 Skin Integrity Intact, [place], Warm, and Skin Abnormality No Dry Outcomes Met? Yes Last Modified By: Mendel Solorzano RN 10/13/17 11:42:14 Post-Care Text: The patient is free from signs and symptoms of injury caused by extraneous objects Patient Positioning FT Pre-Care Text: Identifies physical alterations that require additional precautions for procedure-specific positioning, verifies presence of prosthetics or corrective devices, positions the patient, evaluates the patient for signs and symptoms of injury as a result of positioning Entry 1 Procedure SHOULDER ARTHROSCOPY W/ Body Position Beach Chair POSSIBLE REPAIR(Right) Feet Uncrossed? Yes Left Arm Position Extended on Padded Arm Board Right Arm Position Held on Field Left Leg Position Extended Right Leg Position Extended Positioning Device Safety Strap, Spider Positioner Leg Support, Spider Shoulder Positioner Press Points Checked Yes By Douglas Joe JR, DO, Lunato RN, Jalen Hale RN, Maddie David Outcomes Met? Yes Last Modified By: Mendel Solorzano RN 10/13/17 11:42:51 Post-Care Text: The patient is free from signs and symptoms of injury related to positioning Patient Care Devices FT Pre-Care Text: Implements protective measures to prevent skin/ tissue injury due to thermal or mechanical sources Entry 1 Entry 2 Entry 3 Equipment Type ARTHREX DUALWAVE ARTHROCARE GENERATOR CAUTERY UNIT[F] IRRIGATION PUMP[F] UNIT[F] Equipment Number CART 2 CART 2 BOOM 4 Equipment Setting Outcomes Met? Yes Yes Yes Last Modified By: Mendel Solorzano RN, RN, Mendel Flores RN 10/13/17 11:45:48 10/13/17 11:45:48 10/13/17 11:45:48 Entry 4 Entry 5 Entry 6 Equipment Type MISTRAL FORCED AIR MONITOR CHARGE SURGERY PATT SUCTION UNIT [F] WARMING SYSTEM UNIT[F] [F] Equipment Number M5 ROOM 4 2 Equipment Setting Outcomes Met? Yes Yes Yes Last Modified By: Mendel Solorzano RN, RN, Mendel Flores RN 10/13/17 11:45:48 10/13/17 11:45:48 10/13/17 11:45:48 Entry 7 Entry 8 Entry 9 Equipment Type ORTHO ARTHREX ABRADER SHOULDER TABLE [F] SONOSITE ULTRASOUND SYSTEM[F] UNIT[F] Equipment Number CART 2 Equipment Setting Outcomes Met? Yes Yes Yes Last Modified By: Mendel Solorzano RN, RN, Mendel Flores RN 10/13/17 11:45:48 10/13/17 11:45:48 10/13/17 11:45:48 Entry 10 Equipment Type VIDEO SYSTEM[F] Equipment Number ROOM 4 Equipment Setting Outcomes Met? Yes Last Modified By: Mendel Solorzano RN 10/13/17 11:45:48 Post-Care Text: The patient is free from signs and symptoms of injury caused by extraneous objects General Comments: TRIALING THE ARTHREX APOLLO Transport To OR FT Pre-Care Text: Transports according to individual needs. Evaluates for signs and symptoms of skin and tissue injury as a result of transfer or transport Entry 1 Via Cart By Jalen ABDUL, Maddie David Safety Precautions Side Rails Up Outcomes Met? Yes Last Modified By: Mendel Solorzano RN 10/13/17 11:46:10 Post-Care Text: The patient is free from signs and symptoms of injury related to transfer/transport Counts Verification FT Pre-Care Text: Performs required counts Entry 1 Entry 2 Procedure(s) SHOULDER ARTHROSCOPY W/ SHOULDER ARTHROSCOPY W/ POSSIBLE REPAIR(Right) POSSIBLE REPAIR(Right) Type Initial Final Items Sponges, Sharps Sponges, Sharps Status Correct Correct Time 10/13/17 11:46:00 10/13/17 12:42:00 By Mendel Solorzano RN, Lunato RN, Shabbir Hale MUSIC AGENT, Una Shea MUSIC AGENT, Una Outcomes Met? Yes Yes Last Modified By: Mendel Solorzano RN, RN, Scott A 10/13/17 11:46:44 10/13/17 12:55:09 Post-Care Text: The patient is free from signs and symptoms of injury caused by extraneous objects Skin Prep FT Pre-Care Text: Performs skin preparations Entry 1 Procedure SHOULDER ARTHROSCOPY W/ Prep Area RIGHT SHOULDER AND ARM POSSIBLE REPAIR(Right) TO WRIST Prep Agents Chloraprep/Dry Prior to Draping Hair Removal Methods Not Indicated By Maddie Rao RN Outcomes Met? Yes Last Modified By: Mendel Solorzano RN 10/13/17 11:47:08 Post-Care Text: The patient is free from signs and symptoms of infection Departure From OR FT Pre-Care Text: Transports according to individual needs. Evaluates for signs and symptoms of skin and tissue injury as a result of transfer or transport. Entry 1 Via Cart Safety Precautions Side Rails Up PostOp Destination PACU Transported By Mendel Solorzano RN Patient Status Stable Skin. Condition Intact, [place], Warm, and Dry Airway Maintenance Oxygen in Use? Yes Airway Device Simple Mask Flow Rate 10 L/min Outcomes Met? Yes Last Modified By: Mendel Solorzano RN 10/13/17 11:47:49 Post-Care Text: The patient is free from signs and symptoms of injury related to transfer/transport General Comments: REPORT GIVEN TO PACU NURSE. DELILAH Dressing/Packing FT Pre-Care Text: Administers care to wound sites Entry 1 Type Dressing, Site and Details ADAPTIC, 4X4'S, ABD'S, Immobilization Devices FOAM TAPE, SLING Outcomes Met? Yes Last Modified By: Mendel Solorzano RN 10/13/17 11:48:18 Post-Care Text: The patient is free from signs and symptoms of infection Medication Administration FT Pre-Care Text: Verifies allergies, administers prescribed medications and solutions, administers prescribed antibiotic therapy and immunizing agents as ordered, evaluates response to medications Administers prescribed medications and solutions Entry 1 Expiration Date Yes Outcomes Met? Yes Verified Last Modified By: Mendel Solorzano RN 10/13/17 11:48:24 Post-Care Text: The patient received appropriate medication(s) safely administered during the perioperative period For Jacobo-Cow[place] please see scanned medication reconcilliation form for medications used at the field during the procedure. Temperature Control Entry 1 Temperature Control BLANKET MISTRAL AIR Quantity 1 Aid PLUS LOWER BODY [[id number]][F] Fluid/[place] Unit Mistral warming system Setting 43 Body Site Lower anterior torso Last Modified By: Mendel Solorzano RN 10/13/17 11:48:55 Case Comments Finalized By: Iesha Barrios CST Document Signatures Signed By: Mendel Solorzano RN 10/13/17 12:57 Mendel Solorzano RN 10/13/17 12:57 Mendel Solorzano RN 10/13/17 12:57 Mendel Solorzano RN 10/13/17 12:56 Iesha Barrios CST 10/13/17 14:[address] [facility] Main OR PACU I Recordon 09-22 Main OR PACU I Record PACU Phase I Document Type FT Summary Primary Physician: Migel Dubon DO Finalized Date/Time: 10/13/17 13:26:50 Pt. Name: KATHY RICH/Sex: 1985 Female Med Rec #: [id number] Physician: Migel Dubon DO Financial #: [id number] Pt. Type: A Room/Bed: [place] [address] Admit/Disch: 10/13/17 10:08:27 - Institution: Case Times PACU I FT Pre-Care Text: Identifies barriers to communication and implements measures to provide psychological support Develops individualized plan of care, and ensures continuity of care Maintains patient's dignity and privacy, and maintains patient confidentiality Identifies and reports philosophical, cultural, and spiritual beliefs and values Identifies individual values and wishes concerning care Implements aseptic technique, and administers prescribed antibiotic therapy and immunizing agents as ordered Evaluates postoperative tissue perfusion Implements thermoregulation measures, and monitors body temperature Evaluates postoperative respiratory status Evaluates postoperative cardiac status Evaluates postoperative neurological status Assesses pain control, collaborated in initiating patient-controlled analgesia and implements alternative methods of pain control Verifies allergies, administers prescribed medications and solutions, evaluates response to medications Entry 1 In PACU I 10/13/17 12:51:00 Discharge from PACU 10/13/17 13:21:00 I Outcomes Met? Yes Last Modified By: Renea Wright RN 10/13/17 13:26:33 Post-Care Text: The patient demonstrates knowledge of the expected response to the operative or invasive procedure The patient's care is consistent with the individualized perioperative plan of care The patient's right to privacy is maintained The patient's value system, lifestyle, ethnicity, and culture are considered, respected, and incorporated into the perioperative plan of care The patient participates in decisions affecting his or her perioperative plan of care The patient is free from signs and symptoms of infection The patient has wound/tissue perfusion consistent with or improved from baseline levels established preoperatively The patient is at or returning to normothermia at the conclusion of the immediate postoperative period The patient's respiratory function is consistent with or improved from baseline levels established preoperatively The patient's cardiovascular status is consistent with or improved from baseline levels established preoperatively The patient's cardiovascular status is consistent with or improved from baseline levels established preoperatively The patient demonstrates and/or reports adequate pain control throughout the perioperative period The patient received appropriate medication(s), safely administered during the perioperative period Acuity Level PACU I FT Entry 1 Start Time 10/13/17 12:51:00 Stop Time 10/13/17 13:21:00 Acuity Level Acuity Level I Last Modified By: Renea Wright RN 10/13/17 13:26:44 Finalized By: Renea Wright RN Document Signatures Signed By: Renea Wright RN 10/13/17 13:[address] [facility] Main OR PACU II Recordon Main OR PACU II Record PACU Phase II Document Type FT Summary Primary Physician: Migel Dubon DO Finalized Date/Time: 10/13/17 20:46:07 Pt. Name: KATHY RICH/Sex: 1985 Female Med Rec #: [id number] Physician: Migel Dubon DO Financial #: [id number] Pt. Type: A Room/Bed: [place] [address] Admit/Disch: 10/13/17 10:08:27 - Institution: Case Times PACU II FT Pre-Care Text: Identifies barriers to communication and implements measures to provide psychological support and determines knowledge level Develops individualized plan of care, and ensures continuity of care Maintains patient's dignity and privacy, and maintains patient confidentiality Identifies and reports philosophical, cultural, and spiritual beliefs and values Identifies individual values and wishes concerning care administers prescribed antibiotic therapy and immunizing agents as ordered, Evaluates postoperative tissue perfusion Implements thermoregulation measures, and monitors body temperature Evaluates postoperative respiratory status Evaluates postoperative cardiac status Evaluates postoperative neurological status Assesses pain control, collaborated in initiating patient-controlled analgesia and implements alternative methods of pain control Verifies allergies, administers prescribed medications and solutions, evaluates response to medications Entry 1 In PACU II 10/13/17 13:20:00 Discharge from PACU 10/13/17 15:00:00 II Outcomes Met? Yes Last Modified By: Celia Bernal RN 10/13/17 20:46:02 Post-Care Text: The patient demonstrates knowledge of the expected response to the operative or invasive procedure The patient's care is consistent with the individualized perioperative plan of care The patient's right to privacy is maintained The patient's value system, lifestyle, ethnicity, and culture are considered, respected, and incorporated into the perioperative plan of care The patient participates in decisions affecting his or her perioperative plan of care. The patient is free from signs and symptoms of infection The patient has wound/tissue perfusion consistent with or improved from baseline levels established preoperatively The patient is at or returning to normothermia at the conclusion of the immediate postoperative period The patient's respiratory function is consistent with or improved from baseline levels established preoperatively The patient's cardiovascular status is consistent with or improved from baseline levels established preoperatively The patient's neurological status is consistent with or improved from baseline levels established preoperatively The patient demonstrates and/or reports adequate pain control throughout the perioperative period The patient received appropriate medication(s), safely administered during the perioperative period Finalized By: Celia Bernal RN Document Signatures Signed By: Celia Bernal RN 10/13/17 20:[address] [facility] Main OR Preoperative Recordo n 10-13-2017 Main OR Preoperative Record PreOp Document Type FT Summary Primary Physician: Migel Dubon DO Finalized Date/Time: 10/13/17 11:55:15 Pt. Name: KATHY RICH/Sex: 1985 Female Med Rec #: [id number] Physician: Migel Dubon DO Financial #: [id number] Pt. Type: A Room/Bed: Admit/Disch: 10/13/17 10:08:27 - Institution: Case Times PreOp FT Pre-Care Text: Verifies consent for planned procedure, identifies individual values and wishes concerning care, includes family members in perioperative teaching Entry 1 Patient Times. In Pre Surgery 10/13/17 10:15:00 Out Pre Surgery 10/13/17 11:36:00 Outcomes Met? Yes Last Modified By: Maddie Rao RN 10/13/17 11:55:13 Post-Care Text: The patient participates in decisions affecting his or her perioperative plan of care Finalized By: Maddie Rao RN Document Signatures Signed By: Maddie Rao RN 10/13/17 11:[address] [facility] Operative Reporton 8 Operative Report Date of Surgery: SURGEON: Migel Dubon D.O.WEAVER HAND: Irving White D.O.PREOPERATIVE DIAGNOSIS: Right shoulder Workman's Compensation strain,Peek with rotator cuff impingement with partial rotatorcuff tearPOSTOPERATIVE DIAGNOSIS: Right shoulder Workman's Compensation strain,Peek with rotator cuff impingement with partial rotatorcuff tearOPERATION: Right shoulder examination under anesthesia, shoulderarthroscopy with extensive glenohumeral debridement, subacromialdecompression, partial distal clavicectomyANESTHESIA: General/interscalene combinationANESTHESIOLOGIST: Carmita Joe Jr., D.O.ESTIMATED BLOOD LOSS: MinimalHISTORY AND INDICATIONS: Kathy is a 32 year old female with an injury inthe spring while working at [employer]. Since then she has hadcontinued pain, restriction of motion, difficulty getting dressed. We triedtwo Corticosteroid injections, physical therapy, ice, anti-inflammatory aswell as work modification. Has continued pain and dysfunction. The risks,benefits, complications and reasonable expectations were thoroughlyreviewed. Consent form signed and charted. Site is marked preoperatively.All questions answered preoperatively. C9 authorization for the surgery isachieved through Workman's Compensation. Dr. White was integral inassistance of the case improving time, flow and efficiency.PROCEDURE: Patient taken to the Operating Room and placed in the supineposition. Anesthesia is provided. Patient is positioned on the [facility] beach chair table. Shoulder was examined without adhesive orinstability component. Time out procedure occurred consistent with theconsent form, history and physical and preoperative marked site. Theshoulder is prepped and draped in sterile fashion with ChloraPrep. Time outprocedure occurred once again. Posterior portal incision was made.Arthroscope entered the shoulder joint. Labrum was intact. Articularcartilage was intact without sign of defect. No sign of instability. Nosign of SLAP tear. Subscapularis was intact. Supraspinatus had tendinopathywith some partial tearing. No full thickness tear seen. Biceps tendon wasin the groove. Axillary pouch was negative. Anterior portal wasestablished and the frayed rotator cuff tendon underwent debridement with a4.0 mechanical shaver. Attention was then directed to the subacromial spacefrom the same posterolateral portal approach. She had a very inflamedhemorrhagic bursa, Type II acromion with partial fraying and tearing of thebursal side of the rotator cuff. No full thickness tear identified.Lateral portal incision as well as anterior incision were utilized for asubacromial decompression. A 90 degree [place] Arthrex ablator was utilizedfor a subtotal bursectomy with acromioplasty. 5.5 bone cutter was utilizedfor acromioplasty with partial distal clavicectomy taking off more than 8mm. Adequate decompression was achieved. No full thickness cuff tearidentified. It was copiously irrigated out after final pictures. One simple4-0 Nylon suture was placed at each of the three portal incisions.Bacitracin, Adaptic, well padded sterile soft dressing with a sling isapplied. The patient awakened from anesthesia and transferred to theRecovery Room in stable and satisfactory condition. Case clean andelective. Sponge and needle count correct. Specimen none. Patient conditionsatisfactory.Migel Dubon D.O.lkrDictated: 10/13/2017 #[id number]: 10/13/2017 #[id number]: Martin Jasso D.O. [facility] Comment on above: Result Comment: Electronically Signed By : Migel Dubon\.br\Date and Time Signed: 10/13/17 14:47 EST Operative Report Date of Surgery: SURGEON: Douglas Joe Jr., D.ORustyPREOPERATIVE DIAGNOSIS: Postoperative pain control requested by patientand surgeonPOSTOPERATIVE DIAGNOSIS: Postoperative pain control requested by patientand surgeonOPERATION: Right interscalene block, utilizing ultrasound guidance andnerve stimulatorANESTHESIA: Local with monitored anesthesia carePROCEDURE: The patient was interviewed and examined. The anesthesiaoptions were discussed including interscalene approach to the brachialplexus block for postoperative analgesia. The discussion included theprocedure, risks, benefits, and alternatives to the procedure. Thepatients questions were all answered and the patient elected to proceedwith the brachial plexus nerve block for postoperative pain relief.The patient was placed on the monitors, electrocardiogram, non-invasiveblood pressure machine and pulse oximetry. I.V. sedation was thenadministered with a total of midazolam 2 mg. The neck was prepped withChloraPrep and sterilely draped. The anatomy was identified by ultrasoundand then under ultrasound guidance and concomitant use of a nervestimulator, the brachial plexus was identified with a 25 gauge 1 3/8 inchStimuplex needle. Loss of twitch was observed at 0.5 milliamps. Afterattempted aspiration for blood, air and cerebrospinal fluid, a solution ofan equal mixture of Naropin 0.5 and mepivacaine 1.5% containing 3 mg ofDecadron, total volume of 20 mL was slowly injected with frequentaspirations without signs or symptoms of either intravascular orintrathecal injection. The patient tolerated the procedure well. Therewere signs and symptoms of a block within minutes after completion of theprocedure. The patient then proceeded to undergo general anesthesia forthe proposed procedure.Douglas Joe Jr., D.O.glsDictated: 10/13/2017 #[id number]: 10/13/2017 #[id number]: Douglas Joe Jr., D.O. [facility] Comment on above: Result Comment: Electronically Signed By : Douglas Joe JR, DO.br\Date and Time Signed: 10/13/17 13:52 EST Patient Education - Texton 0 10-13-2017 Patient Education - Text Patient Education Materials Follows:[place] [place] AFTER YOUR SHOULDER ARTHROSCOPY1. Diet Begin with a liquid diet and advance to your normal diet as tolerated.2. ActivityYou may gradually increase your activity as tolerated. Until your first post-operative visit, you may want to elevate your arm higher than your heart, whenever you are sitting or lying down. The swelling will gradually decrease after your surgery. Increased swelling is usually a sign of over-activity and should be a signal for you to be less active and apply ice as needed.You are encouraged to use your shoulder as this is comfortably tolerated. Do not forcefully perform exercises until you have permission. Driving Driving is legal. But if you are involved in an accident, you must be able to prove that you maintained full control of your vehicle. For this reason, it is advised that you do not drive until your strength returns. Similarly, all sports activities are discouraged, at least until your first post-operative visit at which time we will discuss how and when to resume sports. 4. PainUsually this is the result of over-activity and should respond well to rest, ice and elevation. If this does not provide relief, take the pain medication as directed but do not return to activity. Pain is a protective mechanism that signals potential injury and should not be masked by medication when you are active. If pain persists despite rest, elevation and medication, contact your surgeon.You will be given a prescription for pain medications prior to leaving the hospital. Please inform us of any known drug allergy. If you have any problems with the medication, it should be discontinued and our office notified.The sensation of splashing of fluid inside the joint is not cause for concern. It represents residual fluids from surgery and they will be absorbed.Elevation of the arm and application of an ice pack will minimize swelling and discomfort in the first 48 hours after surgery.5. BandageSoft compression dressing has been applied to your shoulder. This dressing should be comfortable and absorb any leakage of fluid or blood from your operated shoulder. Although the dressing may become moist or blood stained, this is not usually a cause for concern. If this persists, notify your surgeon.You may remove the dressing 48 hours after your surgery. .Apply betadine and band-aids to the small incisions once or twice daily as needed.6. IncisionsThe portals of entry may be sore and develop bruising over the next several days. The bruising eventually resolves and does not require any special care.Do not apply creams or lotions to your shoulder. Your portals will heal well on their own.7. BathingYou may shower 48 hours after surgery. Bathing or soaking in water should be avoided until your first post-operative visit.8. PrecautionsIf you develop fever (101 degrees or above), increasing pain (not relieved by rest, elevation, ice) and medication as prescribed, redness or swelling in your shoulder or arm, please contact the office or the hospital. If you notice increased drainage from the operative portals after the third day, this should also be reported.9. Return VisitYour first post-operative follow-up appointment is generally between 10 and 14 days after discharge from the hospital and you will be given an appointment card. Do not hesitate to call the office or the hospital if any problems or questions arise before your appointment. Sommer Dubon, DOAccess [address] [phone]: 10-05 [facility] Progress Note-Physicianon Progress Note-Physician Patient: KATHY RICH Age: 32 years Sex: Female : 1985 Associated Diagnoses: None Author: Douglas Joe JR, DO Preoperative Information Anesthesia history: Patient History: Pt./ family denies any personal or family hx of problems/difficulties with anesthesia.. Re-eval prior to induction: Inital eval reviewed: No significant interval change, NPO 10 hours.. Review of Systems Constitutional: See nursing assessment.. Cardiovascular: Cardiac risk assessment performed. Pt. denies any significant change in their cv hx.. Respiratory: Pt. denies any signicant change in their respiratory status.. Neurologic: Pt. denies any acute neurological changes.. Health Status Allergies: Allergic Reactions (Selected)No Known Allergies, Allergies (1) Active ReactionNo Known Allergies None Documented Current medications: (Selected) Inpatient MnvyacilpsxBtlhphxQ8JC 1000 mL Soln-IV 1,000 mL: 1,000 mL, IV, 150 mL/hr, Routine, Start date 10/13/17 10:00:00 EST, 6.7 hour(s), Total volume (mL): 1,000Dilaudid 2 mg Injection: 1 mg = 0.5 mL, Injection, IV Push, q2hr PRN Pain - Severe for 5 day(s), Stop date 10/18/17 9:29:00 EST, Routine, Start date 10/13/17 9:30:00 ESTPercocet 325 mg-5 mg Tab: 1 tab(s), Tab, Oral, q6hr PRN Pain - Moderate for 5 day(s), Stop date 10/18/17 9:29:00 EST, Routine, Start date 10/13/17 9:30:00 ESTPercocet 325 mg-5 mg Tab: 2 tab(s), Tab, Oral, q6hr PRN Pain - Moderate for 5 day(s), Stop date 10/18/17 9:29:00 EST, Routine, Start date 10/13/17 9:30:00 ESTZofran 4 mg/2 mL Injection: 4 mg = 2 mL, Injection, IV Push, q4hr PRN Nausea/Vomiting, Routine, Start date 10/13/17 9:30:00 ESTPrescriptionsPrescribedPercocet 325 mg-5 mg Tab: 2 tab(s), Oral, q4hr, 50 tab(s), Refill(s) 0, ICD 10# M75.41 one to two po every 4 hour prn painDocumented MedicationsDocumentedImitrex: 100 mg, Oral, Once, PRN Migraine headache, Refills(s) 0, Migraine headacheibuprofen 200 mg oral capsule: 600 mg = 3 cap(s), Oral, BID, PRN as needed for pain, Refills(s) 0, Pain, Medications (5) ActiveScheduled: (0)Continuous: (1)Dextrose 5% in Lactated Ringers 1,000 mL 1,000 mL, IV, 150 mL/hrPRN: (4)acetaminophen-oxycodone 325 mg-5 mg Tab [F] 1 tab(s), Oral, w9kfiamhvjsfrurml-utblpaazv 325 mg-5 mg Tab [F] 2 tab(s), Oral, d8nlVRVLRwtotfjyi 2 mg/mL Inj [F] 1 mg 0.5 mL, IV Push, s0jpodeiizhmfet 2 mg/mL Inj [F] 4 mg 2 mL, IV Push, q4hr Problem list: All ProblemsRotator cuff tear, right / SNOMED CT 8709548242 / ConfirmedMigraines / SNOMED CT [id number] / Confirmed, Active Problems (2)Migraines Rotator cuff tear, right Histories Past Medical History: No active or resolved past medical history items have been selected or recorded. Family History: No family history items have been selected or recorded. Procedure history: c sections.Laparoscopic cholecystectomy (49875526).Tonsillectomy (825209530). Social History Social & Psychosocial MgqfzdSjlzcts98/19/2018 Risk Assessment: Low RiskSubstance Abuse10/09/2017 Risk Assessment: Denies Substance GxeamJyhkqzr77/19/2018 Risk Assessment: Denies Tobacco Use. Physical Examination Vitals Signs (last 24 hrs) Last Charted Minimum MaximumTemp 36.9 (OCT 13 10:20) 36.9 (OCT 13 10:20) 36.9 (OCT 13 10:20)Heart Rate 67 (OCT 13 11:54) 67 (OCT 13 11:54) 77 (OCT 13 10:22)Resp Rate 18 (OCT 13 10:22) 18 (OCT 13 10:22) 18 (OCT 13 10:22)SBP 121 (OCT 13 10:24) 121 (OCT 13 10:24) 137 (OCT 13 10:20)DBP 79 (OCT 13 10:24) 79 (OCT 13 10:24) 86 (OCT 13 10:20)MAP 93 (OCT 13 10:24) 93 (OCT 13 10:24) 103 (OCT 13 10:20)SpO2 99 (OCT 13 11:54) 97 (OCT 13 10:22) 100 (OCT 13 11:37) Airway: Normal oral/pharyngeal anatomy.. Respiratory: Adequate air exchange.. Cardiovascular: Adequate perfusion and function. Review / Management Results review: No qualifying data available. Plan [place] [employer] Anesthesiologists (ASA) physical status classification: Class I. Anesthetic Preoperative Plan Anesthesia: General. , Regional Interscalene Block. Anesthetic plan, risks, benefits, and alternatives discussed with the patient and/or family. Pt. and/or family present and agree to proceed as planned.. Discussed the importance of abstaining from tobacco products, and offered counseling if desired. Normal [facility] Comment on above: Result Comment: Electronically Signed By : Douglas Joe JR, DO.heladio\Date and Time Signed: 10/13/17 12:21 EST CBC w/Indiceson 10-09-2017 Erythrocyte distribution width Auto Ratio (RBC) 12.8 % Normal 10.9-14.[address] [facility] Comment on above: Performed By: #### [id number] ####[facility] [address] [place] [address] Erythrocytes (RBC) 3.9 E12/L Low 4.3-5.[address] [facility] Comment on above: Performed By: #### [id number] ####[facility] [address] [place] [address] Hematocrit (HCT) 37.0 % Normal 34.0-46.[address] [facility] Comment on above: Performed By: #### [id number] ####[facility] [address] [place] [address] Hemoglobin mass conc (Bld) 13.4 g/dL Normal 12.0-16.[address] [facility] Comment on above: Performed By: #### [id number] ####[facility] [address] [place] [address] MCH 34.0 pg Normal 27.0-34.[address] [facility] Comment on above: Performed By: #### [id number] ####[facility] [address] [place] [address] MCHC mass conc (RBC) 36.2 g/dL Normal 31.4-39.[address] [facility] Comment on above: Performed By: #### [id number] ####[facility] [address] [place] [address] MCV 94.0 fL Normal 80.0-100.[address] [facility] Comment on above: Performed By: #### [id number] ####[facility] [address] [place] [address] Platelet mean volume (PMV) 8.0 fL Normal 6.4-10.[address] [facility] Comment on above: Performed By: #### [id number] ####Jacobo [facility] [address] [place] [address] Platelets 214.0 E9/L Normal 150.0-500. [address] [facility] Comment on above: Performed By: #### [id number] ####Donnell [facility] [address] [place] [address] WBC (Leukocytes) 6.2 E9/L Normal 4.0-11.[address] [facility] Comment on above: Performed By: #### [id number] ####Donnell [facility] [address] [place] [address] U BetaHcg Qualon 10-09-2017 CHORIOGONADOTROP IN.BETA SUBUNIT:SCNC:PT: URINE:QN: Negative Normal [facility] Comment on above: Performed By: #### [id number] ####Jacobo [facility] [address] [place] [address] Nonvisit Note - PTon 017 Nonvisit Note - PT Patient did not show up for her PT eval at 1045 today. She did not call to cancel or reschedule. Normal [facility] Encounters Encounter Date Encounter Type Care Provider Facility Start: 06-16-2022 End: 06-16-[address] JASON CAMPOS Facility:[facility] Start: 06-04-2022 End: 06-04-[address] ESTHELA COOPER Facility:[facility] Start: 04-08-2022 End: 04-08-[address] ESTHELA COOPER Facility:[facility] Start: 01-01-2022 End: 01-01-[address] ESTHELA COOPER Facility:[facility] Start: 10-04-2021 End: 10-04-[address] ESTHELA COOPER Facility:[facility] Start: 10-01-2021 End: 10-01-2021 ambulatory CINTIA AVELAR Facility:[facility] Start: 09-02-2021 End: 09-03-[address] ESTHELA COOPER Facility:[facility] Start: 10-13-2017 End: 10-13-2017 Ambulatory Migel Dubon Facility:[facility] Start: 10-09-2017 End: 10-10-2017 Ambulatory Migel Dbuon Facility:[facility] Payers Date Payer Category Payer Worker's Compensation [id number] 1985 Unknown [id number] 2.16.84 [id number] 1985 Unknown [id number] 2.16.84 [id number] 1985 Unknown [id number] 2.16.84 [id number] 1985 Unknown [id number] 2.16.84 [id number] 1985 Unknown [id number] 2.16.84 [id number] 1985 Unknown [id number] 2.16.84 [id number] 1985 Unknown [id number] 2.16.84 [id number] 1959 Unknown 1959 Unknown [id number] Clinical Note 09-02-2021 Note Date & Type Note Facility 09-02-2021 Note PROCEDURE: XR KNEE L T 4V or > HISTORY: Derangement of knee ; anterior left knee pain since falling/twisting injury 2 months ago COMPARISON: None. FINDINGS: BONES:No fracture, acute abnormality, or significant arthropathy. SOFT TISSUES:No visible soft tissue swelling. EFFUSION:None visible. OTHER: Negative. IMPRESSION: 1. No acute bone abnormality or significant degenerative changes. Electronically authenticated by: KATIE LOPEZ Date: 2021-09-02 10:[address] [facility] Summary Purpose Family History No Family History Records FoundNo Family History Records Found Advance Directives No Advanced Directives Records FoundNo Advanced Directives Records Found Additional Source Comments INFORMATION SOURCE (unrecogn ized section and content) DATE CREATED AUTHOR 03/15/2018 [facility] DATE CREATED AUTHOR AUTHOR'S GENEVIEVE ATTRACY 06/17/2022 [facility] FOR RECORDS PERTAINING TO PATIENTS WHO ARE OR HAVE BEEN ENROLLED IN A CHEMICAL DEPENDENCY/SUBSTANCEABUSE PROGRAM, SOME INFORMATION MAY BE OMITTED. This clinical summary was aggregated from multiple sources. Caution should be exercised in using it in the provision of clinical care. This summary normalizes information from multiple sources, and as a consequence, information in this document may materially change the coding, format and clinical context of patient data. In addition, data may be omitted in some cases. CLINICAL DECISIONS SHOULD BE BASED ON THE PRIMARY CLINICAL RECORDS. [facility]. provides no warranty or guarantee of the accuracy or completeness of information in this document.
== END 2023-09-10 09:27 | disposition home or self-care (01) ==
LOC: VC 09:27
PROVIDERS: PCP Radiology Diagnostic Radiology; Visit Provider Radiology Diagnostic Radiology
DX: I80.02 Phlebitis and thrombophlebitis of superficial vessels of left lower extremity (principal)
CPT/HCPCS: 93971; G0463

== ENCOUNTER 2025-05-25 09:50 | Outpatient (OUT) | payer OTHER, SELFPAY ==
--- OUTSIDE RECORDS SUMMARY | 2025-05-25 09:53 | XMS_ITS | Clinical Summary ---
Author Organization Rupture tem Address [id number] [address] [place] [address] Care Team Providers Care Bushel Girl Name Role Phone Arsenio Cooper MD Primary Care Provider [phone] Allergies No known active allergies Social History Tobacco Use Types Packs/Day Years Used Date Smoking Tobacco: Never Assessed Childcare Answer Date Recorded Childcare Unknown 03/02/2019 Employment Answer Date Recorded Employment Unknown 03/02/2019 Purpose - Life Answer Date Recorded Purpose and direction in life Unknown Comments Unknown Sex and Gender Information Value Date Recorded Sex Assigned at Not on file Legal Sex Female 12:07 PM EDT Gender Identity Not on file Sexual Orientation Not on file Last Filed Vital Signs Vital Sign Reading Time Taken Comments Blood Pressure - - Pulse - - Temperature - - Respiratory Rate - - Oxygen Saturation - - Inhaled Oxygen Concentration - - Weight 91.2 kg (201 lb) 06/11/2017 12:19 PM EDT Height - - Body Mass Index - - Plan of Treatment Not on file Medical Devices Not on file Insurance [employer] [place] [id number] WORKERS COMPENSATION - GENERIC PLAN Care Teams Bushel Girl Relationship Specialty Start Date End Date Arsenio Cooper MD PCP - General 06/11/17
--- OUTSIDE RECORDS SUMMARY | 2025-05-25 09:53 | XMS_ITS | Clinical Summary ---
Author Organization [facility] Address [address] [place] [address] Care Team Providers Care Medical Imaging Director Name Role Phone Unavailable Primary Care Provider Unavailabl e Social History Tobacco Use Types Packs/Day Years Used Date Smoking Tobacco: Never Assessed Comments Unknown Sex and Gender Information Value Date Recorded Sex Assigned at Not on file Legal Sex Female 8:06 PM EDT Gender Identity Not on file Sexual Orientation Not on file Last Filed Vital Signs Vital Sign Reading Time Taken Comments Blood Pressure 118/73 04/02/2018 12:00 PM EDT Pulse - - Temperature - - Respiratory Rate - - Oxygen Saturation - - Inhaled Oxygen Concentration - - Weight 49.9 kg (110 lb) 04/02/2018 12:00 PM EDT Height 170.2 cm (5' 7 ) 04/02/2018 12:00 PM EDT Body Mass Index 17.23 04/02/2018 12:00 PM EDT Plan of Treatment Not on file
--- OUTSIDE RECORDS SUMMARY | 2025-05-25 09:56 | XMS_ITS | CCD ---
Author Organization [facility] Care Team Providers Care Government Professor Name Role Phone Migel Dubon T. Unavailable Unavailable Dubon, Migel T. Unavailable Unavailable Dubon, Migel T. Unavailable Unavailable Hoy, Esthela~[phone] UNKNOWN Unavailable Unavailable Dubon, Migel T. Unavailable Unavailable Dubon, Migel T. Unavailable Unavailable Dubon, Migel T. Unavailable Unavailable Hoy, Esthela~[phone] UNKNOWN Unavailable Unavailable PAY, DR GOMEZ Attending [...] PROCTOR Consulting Unavailable CINTIA AVELAR Admitting Unavailable PAO, DR PROCTOR Primary Care Unavailable CINTIA AVELAR [...] KATIE LOPEZ Date: 2022-06-16 11:39 Normal [facility] Covid-19 PCR (CVDTB)on 05-22 SARS-CoV-2 (COVID-19) RNA ALEJANDRINA+probe Ql (Unsp spec) Not detected Normal NOT DETECTED [facility] Comment on above: Result Comment: This test is not yet kuldip roved or cleared by the [place] FDA. When there are no FDA-approved or cleared tests available, and other criteria are met, FDA can make tests available under an emergency access mechanism called an Emergency Use Authorization (EUA). The EUA for this test is supported by the [place] of Health and Human Service's (HHS's) declaration [...] consistent with SARS-CoV-2. Performed By: #### [facility] #### [facility] [address] [place] [address] Dr. Negrita Dao Covid-19 PCR (CVDTB)on 03-21 SARS-CoV-2 (COVID-19) RNA ALEJANDRINA+probe Ql (Unsp spec) Detected Critically abnormal NOT DETECTED [facility] Comment on above: Result Comment: This test is not yet kuldip roved or cleared by the [place] FDA. When there are no FDA-approved or cleared tests available, and other criteria are met, FDA can make tests available under an emergency access mechanism called an Emergency Use Authorization (EUA). The EUA for this test is supported by the [place] of Health and Human Service's declaration that [...] used). Performed By: #### C VDTBH #### [facility] [address] [place] [address] Dr. Negrita Dao INFLUENZA A AND B AGon 04-08 INFLUENZA A AG Negative Normal NEGATIVE SEE COMMENT [facility] Comment on above: Performed By: #### INFLUAB #### [facility] [address] [place] [address] Dr. Negrita Dao INFLUENZA B AG Negative Normal NEGATIVE SEE COMMENT [facility] Comment on above: Performed By: #### INFLUAB #### [facility] [address] [place] [address] Dr. Negrita Dao INTERNAL CONTROLS Within Normal Limits Normal Within Normal Limits [facility] Comment on above: Performed By: #### INFLUAB #### [facility] [address] [place] [address] Dr. Negrita Dao Covid-19 PCR ([facility]on 12-20 SARS-CoV-2 (COVID-19) RNA ALEJANDRINA+probe Ql (Unsp spec) Not detected Normal NOT DETECTED [facility] Comment on above: Result Comment: This test is not yet kuldip roved or cleared by the [place] FDA. When there are no FDA-approved or cleared tests available, and other criteria are met, FDA can make tests available under an emergency access mechanism called an Emergency Use Authorization (EUA). The EUA for this test is supported by the [place] of Health and Human Service's (HHS's) declaration [...] SARS-CoV-2. Performed By: #### C VDTBH #### [facility] [address] [place] [address] Dr. Negrita Dao INFLUENZA A AND B AGon 01-01 [facility] SEE BELOW Normal [facility] Comment on above: Result Comment: Negative for Flu A prote in angiten. Infection due to Flu A cannot be ruled out. Flu A angiten in the sample may be below the detection limit of the test. Performed By: #### I NFLUAB #### [facility] [address] [place] [address] Dr. Negrita Dao INFLUBNEG SEE BELOW Normal [facility] Comment on above: Result Comment: Negative for Flu B prote in antigen. Infection due to Flu B cannot be ruled out. Flu B antigen in the sample may be below the detection limit of the test. Performed By: #### I NFLUAB #### [facility] [address] [place] [address] Dr. Negrita Dao INFLUENZA A AG Negative Normal NEGATIVE SEE COMMENT [facility] Comment on above: Performed By: #### INFLUAB #### [facility] [address] [place] [address] Dr. Negrita Dao INFLUENZA B AG Negative Normal NEGATIVE SEE COMMENT [facility] Comment on above: Performed By: #### INFLUAB #### [facility] [address] [place] [address] Dr. Negrita Dao INTERNAL CONTROLS Within Normal Limits Normal Within Normal Limits [facility] Comment on above: Performed By: #### INFLUAB #### [facility] [address] [place] [address] Dr. Negrita Dao Covid-19 PCR (CVDTB)on 09-21 SARS-CoV-2 (COVID-19) RNA ALEJANDRINA+probe Ql (Unsp spec) Not detected Normal NOT DETECTED [facility] Comment on above: Result Comment: This test is not yet kuldip roved or cleared by the [place] FDA. When there are no FDA-approved or cleared tests available, and other criteria are met, FDA can make tests available under an emergency access mechanism called an Emergency Use Authorization (EUA). The EUA for this test is supported by the [place] of Health and Human Service's (HHS's) declaration [...] SARS-CoV-2. Performed By: #### C VDTB #### [facility] [address] [place] [address] Dr. Negrita Dao Covid-19 PCR ([facility])on 09-21 SARS-CoV-2 (COVID-19) RNA ALEJANDRINA+probe Ql (Unsp spec) Not detected Normal NOT DETECTED [facility] Comment on above: Result Comment: This test is not yet kuldip roved or cleared by the [place] FDA. When there are no FDA-approved or cleared tests available, and other criteria are met, FDA can make tests available under an emergency access mechanism called an Emergency Use Authorization (EUA). The EUA for this test is supported by the [employer] of Health and Human Service's (HHS's) declaration [...] SARS-CoV-2. Performed By: #### C VDTBH #### [facility] [address] [place] [address] Dr. Negrita Dao Progress Note-Physicianon Progress Note-Physician [...] ProblemsRotator cuff tear, right / SNOMED CT 4182194970 / ConfirmedMigraines / SNOMED CT 98213737 / Confirmed Physical Examination Intake and Output Denies significant n/v and is tolerating p.o. No qualifying data available Respiratory: Adequate air exchange with yarsani of preoperative function.. Cardiovascular: Cardiovascular function is stable and has returned to preoperative levels.. Neurologic: Pt has returned to preoperative baseline.. Review / Management Condition: Stable. Assessment Anesthetic outcome No anesthetic complications noted. Plan Transfer/ Discharge: Patient can be discharged from PACU when criteria met. Condition good. Normal [facility] Comment on above: Result Comment: [...] (Selected)No Known Allergies Current medications: (Selected) Inpatient YpffjyvzhggGsmsuxoQ4CF 1000 mL Soln-IV 1,000 mL: 1,000 mL, [...] ProblemsRotator cuff tear, right / SNOMED CT 6031492948 / ConfirmedMigraines / SNOMED CT 33633455 / Confirmed Physical Examination Intake and Output [...] 4 . Respiratory: Adequate air exchange with yarsani of preoperative function.. Cardiovascular: Cardiovascular function is stable and has returned to preoperative levels.. Neurologic: Pt has returned to preoperative baseline.. Review / Management Condition: Stable. Assessment Anesthetic outcome No anesthetic complications noted. Plan Transfer/ Discharge: Patient can be discharged from PACU when criteria met. Condition good. Normal [facility] Coding Summary.on 10-14-2017 Coding Summary. CODING DATE: 018 [facility] STATUS: Home (Routine DC) PAYOR: Worker's Compensation [...] PROC APC STAT DESCRIPTION DOCTOR NAME DATE 01020 Arthroscopy, shoulder, Migel Dubon DO T. 10/13/2017 surgical; decompression of subacromial space with partial acromioplasty, with coracoacromial ligament (ie, arch) release, when performed (List separately in addition to code for primary procedure) RT Right side (used to identify procedures performed on the right side of the body) 34989 5113 J1 Arthroscopy, shoulder, Migel Dubon DO T. 10/13/2017 surgical; distal claviculectomy including distal articular surface (Annalisa procedure) RT Right side (used to identify procedures performed on the right side of the body) 19573 5113 J1 Arthroscopy, shoulder, Migel Dubon DO T. 10/13/2017 surgical; debridement, extensive RT Right side (used to identify procedures performed on the right side of the body) 13600 Injection, anesthetic Migel Dubon DO 10/13/2017 agent; brachial plexus, single RT Right side (used to identify procedures performed on the right side of the body) XP Separate Practitioner * 05841 Anesthesia for open or Migel Dubon DO T. 10/13/2017 surgical arthroscopic procedures on humeral head [...] Barbosa Date Saved: 10/14/2017 04:00 pm Normal [facility] Coding Summary.on 10-13-2017 Coding Summary. CODING DATE: 018 FINAL [facility] STATUS: Home (Routine DC) PAYOR: Worker's Compensation [...] Kelley Date Saved: 10/13/2017 07:55 am Normal [facility] Inpatient Patient Summaryon 10-13-2017 [facility] INFORMATION Name: KATHY RICH PHYSICIANS Admitting Physician: Migel Dubon DOAttending Physician: Migel Dubon DO PCP: Carlyn Cooper MD Diagnosis: Impingement syndrome of right shoulder Comment: PATIENT EDUCATION INFORMATIONInstructions:Ling - After Your Shoulder Arthroscopy (Revised 10/19/14) (CUSTOM)Medication Leaflets:Follow up:With: Address: When: Migel Dubon [address] [place] [address] [facility] () Comments: Keep scheduled appointment MEDICATION LISTFill New Prescriptions:acetaminophen-oxycodo ne (Percocet 325 mg-5 mg Tab) 2 tab(s) By Mouth every 4 hours ICD 10# M75.41 one to two po every 4 hour prn painComment: Normal [facility] Main OR Intraoperative Recor don 10-13-2017 Main OR Intraoperative Record IntraOp Document Type FT Summary Primary Physician: Migel Dubon DO Finalized Date/Time: 10/13/17 14:31:35 Pt. Name: KATHY RICH Brando/Sex: 1985 Female Med Rec #: [id number] Physician: Migel Dubon DO Financial #: [id number] Pt. Type: A Room/Bed: [facility]19 Admit/Disch: 10/13/17 10:08:27 - Institution: Case Times [...] By: Rashad RN, Mendel Solorzano RN, Mendel Solorzano RN, Mendel Wang 10/13/17 12:50:05 10/13/17 12:50:05 10/13/17 12:50:05 Entry 4 Entry 5 Entry 6 Case Attendee Rashad ABDUL, Mendel Rao RN, nUa Cooper CST Role Performed Metal Neutralizer - Primary Metal Neutralizer - Primary Scrub - Primary Time In 10/13/17 11:58:00 10/13/17 11:58:00 10/13/17 11:58:00 Time Out 10/13/17 12:49:00 10/13/17 12:49:00 10/13/17 12:49:00 Procedure SHOULDER ARTHROSCOPY W/ SHOULDER ARTHROSCOPY W/ SHOULDER ARTHROSCOPY W/ POSSIBLE REPAIR(Right) POSSIBLE REPAIR(Right) POSSIBLE REPAIR(Right) Comments Last Modified By: Rashad RN, Mendel Solorzano RN, Mendel Solorzano RN, Mendel Wang 10/13/17 12:50:05 10/13/17 12:50:05 10/13/17 12:50:05 General [...] DO, Migel Dubon DO, Irving White DO, Rashad ABDUL, Jalen Hale RN, Maddie RShabbir MARINE DESIGNER, Una Time Out Complete 10/13/17 12:15:00 Outcomes [...] Yes ROTATOR CUFF TEAR Last Modified By: eMndel Solorzano RN 10/13/17 12:57:34 Post-Care Text: The patient is free from signs and symptoms of infection Skin Assessment (Pre Procedure) FT Pre-Care Text: Implements protective measures to prevent skin/ tissue injury due to thermal or mechanical sources Evaluates for signs and symptoms of physical injury to skin and tissue Entry 1 Skin Integrity Intact, [place], Warm, and Skin Abnormality No Dry Outcomes [...] Shoulder Positioner Press Points Checked Yes By Tatyana CORONADO DO, Rashad Champion RN, Jalen Hale RN, Maddie David Outcomes [...] 12:42:00 By Mendel Solorzano RN, Lunato RN, Mendel Wang Shea MARINE DESIGNER, Una Shea MARINE DESIGNER, Una Outcomes Met? Yes Yes Last Modified [...] RN Patient Status Stable Skin. Condition Intact, [place], Warm, and Dry Airway Maintenance Oxygen in [...] safely administered during the perioperative period For Jacobo-Jesus please see scanned medication reconcilliation form for medications used at the field during the procedure. Temperature Control Entry 1 Temperature Control BLANKET MISTRAL AIR Quantity 1 Aid PLUS LOWER BODY [[id number]][F] Fluid/[place] Unit Mistral warming system Setting 43 Body Site Lower anterior torso Last Modified By: Mendel Solorzano RN 10/13/17 11:48:55 Case Comments Finalized By: Iesha Barrios CST Document Signatures Signed By: Mendel Solorzano RN 10/13/17 12:57 Rashad ABDUL, Mendel Wang 10/13/17 12:57 Mendel Solorzano RN 10/13/17 12:57 Rashad ABDUL, Mendel Wang 10/13/17 12:56 Iesha Barrios CST 10/13/17 14:31 Normal [facility] Main OR PACU I Recordon 09-22 Main OR PACU I Record PACU Phase I Document Type FT Summary Primary Physician: Migel Dubon DO Finalized Date/Time: 10/13/17 13:26:50 Pt. Name: HILARIOKATHY ARENAS Brando/Sex: 1985 Female Med Rec #: [id number] Physician: Migel Dubon DO Financial #: [id number] Pt. Type: A Room/Bed: [place] [address] Admit/Disch: 10/13/17 10:08:27 - Institution: Case Times [...] By: Renea Wright RN 10/13/17 13:26 Normal [facility] Main OR PACU II Recordon Main OR PACU II Record PACU Phase II Document Type FT Summary Primary Physician: Migel Dubon DO Finalized Date/Time: 10/13/17 20:46:07 Pt. Name: KATHY RICH/Sex: 1985 Female Med Rec #: [id number] Physician: Migel Dubon DO Financial #: [id number] Pt. Type: A Room/Bed: [place] [address] Admit/Disch: 10/13/17 10:08:27 - Institution: Case Times [...] By: Celia Bernal RN 10/13/17 20:46 Normal [facility] Main OR Preoperative Recordo n 10-13-2017 Main OR Preoperative Record PreOp Document Type FT Summary Primary Physician: Migel Dubon DO Finalized Date/Time: 10/13/17 11:55:15 Pt. Name: KATHY RICH/Sex: 1985 Female Med Rec #: [id number] Physician: Migel Dubon DO Financial #: [id number] Pt. Type: A Room/Bed: [place] [address] Admit/Disch: 10/13/17 10:08:27 - Institution: Case Times [...] By: Maddie Rao RN 10/13/17 11:55 Normal [facility] Operative Reporton 10-13-201 8 Operative Report Date of Surgery: SURGEON: Migel Dubon D.O.PRICING COORDINATOR: Irving White D.O.PREOPERATIVE DIAGNOSIS: Right shoulder Workman's Compensation strain,[employer] with rotator cuff impingement with partial rotatorcuff tearPOSTOPERATIVE DIAGNOSIS: Right shoulder Workman's Compensation strain,[employer] with rotator cuff impingement with partial rotatorcuff tearOPERATION: Right shoulder examination under anesthesia, shoulderarthroscopy with extensive glenohumeral debridement, subacromialdecompression, partial distal clavicectomyANESTHESIA: General/interscalene combinationANESTHESIOLOGIST: Carmita Joe Jr., D.ORustyESTIMATED BLOOD LOSS: MinimalHISTORY AND INDICATIONS: Kathy is a 32 year old female with an injury inthe spring of 2015 while working at [employer]. Since then she has hadcontinued pain, restriction [...] is provided. Patient is positioned on the [facility] beach chair table. Shoulder was [...] utilized for asubacromial decompression. A 90 degree [place] Arthrex ablator was utilizedfor a subtotal bursectomy [...] Specimen none. Patient conditionsatisfactory.Migel Dubon D.O.lkrDictated: 10/13/2017 #[id number]: 10/13/2017 #[id number]: Martin Jasso D.O. [facility] Comment on above: Result Comment: Electronically Signed By : Migel Dubon\.br\Date and Time Signed: 10/13/17 14:47 EST Operative Report Date of Surgery: SURGEON: Douglas Joe Jr., AlinaORustyPREOPERATIVE DIAGNOSIS: Postoperative pain control requested by patientand [...] forthe proposed procedure.Douglas Joe Jr., D.O.glsDictated: 10/13/2017 #[id number]: 10/13/2017 #[id number]: Douglas Joe Jr., D.O. [facility] Comment on above: Result Comment: Electronically Signed By : Douglas Joe JR, DO.br\Date and Time Signed: 10/13/17 13:52 EST Patient Education - Texton 0 10-13-2017 Patient Education - Text Patient Education Materials [place]s:[place] [facility] AFTER YOUR SHOULDER ARTHROSCOPY1. Diet [...] arise before your appointment. Sommer Dubon, DOAccess [address] [place], [place] [phone]: 10-05 [facility] Progress Note-Physicianon Progress Note-Physician Patient: KATHY RICH [...] Allergies None Documented Current medications: (Selected) Inpatient TnuytinbboiQqyuwisR8FO 1000 mL Soln-IV 1,000 mL: 1,000 mL, [...] mg-5 mg Tab [F] 1 tab(s), Oral, w2wzzlayplmfbobcn-pxoubvuvr 325 mg-5 mg Tab [F] 2 tab(s), Oral, m9neTRVTCwrnbkybk 2 mg/mL Inj [F] 1 mg 0.5 mL, IV Push, y0kljohyjkoifwk 2 mg/mL Inj [F] 4 mg 2 mL, IV Push, q4hr Problem list: All ProblemsRotator cuff tear, right / SNOMED CT 4054098810 / ConfirmedMigraines / SNOMED CT 09196589 / Confirmed, Active Problems (2)Migraines Rotator cuff tear, right Histories Past Medical History: No active or resolved past medical history items have been selected or recorded. Family History: No family history items have been selected or recorded. Procedure history: c sections.Laparoscopic cholecystectomy (73254249).Tonsillectomy (729802888). Social History Social & Psychosocial BrzdukTmucail22/19/2018 Risk Assessment: Low RiskSubstance Abuse10/09/2017 Risk Assessment: Denies Substance UboelShgwzqz13/19/2018 Risk Assessment: Denies Tobacco Use. Physical Examination [...] Results review: No qualifying data available. Plan [place] Society of Anesthesiologists (ASA) physical status classification: Class I. Anesthetic Preoperative Plan Anesthesia: General. , Regional Interscalene Block. Anesthetic plan, risks, benefits, and alternatives discussed with the patient and/or family. Pt. and/or family present and agree to proceed as planned.. Discussed the importance of abstaining from tobacco products, and offered counseling if desired. Normal [facility] Comment on above: Result Comment: Electronically Signed By : Douglas Joe JR, DO.heladio\Date and Time Signed: 10/13/17 12:21 EST CBC w/Indiceson 10-09-2017 Erythrocyte distribution width Auto Ratio (RBC) 12.8 % Normal 10.9-14.2 [facility] Comment on above: Performed By: #### [id number] ####[facility] [address] [place] [address] Erythrocytes (RBC) 3.9 E12/L Low 4.3-5.9 [facility] Comment on above: Performed By: #### [id number] ####[facility] [address] [place] [address] Hematocrit (HCT) 37.0 % Normal 34.0-46.0 [facility] Comment on above: Performed By: #### [id number] ####[facility] [address] [place] [address] Hemoglobin mass conc (Bld) 13.4 g/dL Normal 12.0-16.0 [facility] Comment on above: Performed By: #### [id number] ####[facility] [address] [place] [address] MCH 34.0 pg Normal 27.0-34.0 [facility] Comment on above: Performed By: #### [id number] ####[facility] [address] [place] [address] MCHC mass conc (RBC) 36.2 g/dL Normal 31.4-39.3 [facility] Comment on above: Performed By: #### [id number] ####[facility] [address] [place] [address] MCV 94.0 fL Normal 80.0-100.0 [facility] Comment on above: Performed By: #### [id number] ####[facility] [address] [place] [address] Platelet mean volume (PMV) 8.0 fL Normal 6.4-10.8 [facility] Comment on above: Performed By: #### [id number] ####[facility] [address] [place] [address] Platelets 214.0 E9/L Normal 150.0-500. 0 [facility] Comment on above: Performed By: #### [id number] ####[facility] [address] [place] [address] WBC (Leukocytes) 6.2 E9/L Normal 4.0-11.0 [facility] Comment on above: Performed By: #### [id number] ####[facility] [address] [place] [address] U BetaHcg Qualon 10-09-2017 CHORIOGONADOTROP IN.BETA SUBUNIT:SCNC:PT: URINE:QN: Negative Normal [facility] Comment on above: Performed By: #### [id number] ####[facility] [address] [place] [address] Nonvisit Note - PTon 017 Nonvisit Note - PT Patient did not show up for her PT eval at 1045 today. She did not call to cancel or reschedule. Normal [facility] Encounters Encounter Date Encounter Type [...] Start: 10-13-2017 End: 10-13-2017 Ambulatory Migel Dubon [facility] Start: 10-09-2017 End: 10-10-2017 Ambulatory Migel Dubon [facility] Payers Date Payer Category Payer Worker's Compensation [id number] 1985 Unknown [id number] 2.16.84 [id number] 1985 Unknown [id number] 2.16.84 [id number] 1985 Unknown [id number] 2.16.84 [id number] 1985 Unknown [id number] 2.16.84 [id number] 1985 Unknown [id number] 2.16.84 [id number] 1985 Unknown [id number] 2.16.84 [id number] 1985 Unknown [id number] 2.16.84 [id number] 1959 Unknown 1959 Unknown [id number] Clinical Note 09-02-2021 Note Date & Type [...] by: KATIE LOPEZ Date: 2021-09-02 10:22 [facility] Summary Purpose Family History No Family History Records FoundNo Family History Records Found Advance Directives No Advanced Directives Records FoundNo Advanced Directives Records Found Additional Source Comments INFORMATION SOURCE (unrecogn ized section and content) DATE CREATED AUTHOR 03/15/2018 [facility] DATE CREATED AUTHOR AUTHOR'S GENEVIEVE ATTRACY 06/17/2022 [facility] FOR RECORDS PERTAINING TO PATIENTS WHO [...] BE BASED ON THE PRIMARY CLINICAL RECORDS. [employer] [facility]. provides no warranty or guarantee of the accuracy or completeness of information in this document.
--- NOTE | 2025-05-25 09:58 | XR_ITS ---
The [address] [address] Patient Name: LAISHA RICH MRN: [id number] date: 1985 Sex: F Assigned Patient Location: [facility] Current Patient Location: [facility] Accession/Order Number: [id number] Exam Date: 05/25/2025 10:10 Report Date: 05/25/2025 10:36 At the request of: ESTHELA CEDENO MD Procedure: XR wrist LT min 3V CLINICAL DATA: Patient fell forward onto flexed hand across week. Numbness and tingling from the fingers to the wrist. LEFT HAND - 3 views COMPARISON: None AP, lateral and oblique views were obtained. There is no evidence of fracture or dislocation. There are no significant soft tissue abnormalities. XR/XR wrist LT min 3V IMPRESSION: NO ACUTE BONY INJURY. LEFT WRIST - 3 views COMPARISON: None AP, lateral and oblique views were obtained. There is no evidence of fracture or dislocation. There are no significant soft tissue abnormalities. IMPRESSION: NO ACUTE BONY INJURY. Impression dictated by: Nay Anaya M.D. 05/25/2025 10:36 AM Dictation Location: [facility] Electronically authenticated by: [id number] Y Date: 05/25/2025 10:36
--- NOTE | 2025-05-25 09:58 | XR_ITS ---
The [address] [address] Patient Name: LAISHA RICH MRN: [id number] date: 1985 Sex: F Assigned Patient Location: [facility] Current Patient Location: [facility] Accession/Order Number: [id number] Exam Date: 05/25/2025 10:10 Report Date: 05/25/2025 10:36 At the request of: ESTHELA CEDENO MD Procedure: XR wrist LT min 3V CLINICAL DATA: Patient fell forward onto flexed hand across week. Numbness and tingling from the fingers to the wrist. LEFT HAND - 3 views COMPARISON: None AP, lateral and oblique views were obtained. There is no evidence of fracture or dislocation. There are no significant soft tissue abnormalities. XR/XR hand LT min 3V IMPRESSION: NO ACUTE BONY INJURY. LEFT WRIST - 3 views COMPARISON: None AP, lateral and oblique views were obtained. There is no evidence of fracture or dislocation. There are no significant soft tissue abnormalities. IMPRESSION: NO ACUTE BONY INJURY. Impression dictated by: Nay Anaya M.D. 05/25/2025 10:36 AM Dictation Location[facility] Electronically authenticated by: [id number] Y Date: 05/25/2025 10:36
== END 2025-05-25 09:51 | disposition home or self-care (01) ==
LOC: RAD 09:51
PROVIDERS: PCP Family Medicine; Visit Provider Family Medicine
DX: M79.642 Pain in left hand (principal)
CPT/HCPCS: 73110; 73130

== ENCOUNTER 2025-05-30 08:44 | Outpatient (OUT) | payer OTHER, SELFPAY ==
--- NOTE | 2025-05-30 08:48 | CT_ITS ---
The [address] [address] Patient Name: LAISHA RICH MRN: [id number] date: 1985 Sex: F Assigned Patient Location: CT Current Patient Location: CT Accession/Order Number: [id number] Exam Date: 05/30/2025 09:00 Report Date: 05/30/2025 12:34 At the request of: ESTHELA CEDENO MD Procedure: CT hand LT wo con CT left hand and wrist TECHNIQUE: The CT exam was performed using one or more the following dose reduction techniques: Automated exposure control, adjustment of the MA and/or Kv according to patient size, or use of the iterative reconstruction technique. COMPARISON: Plain film imaging 05/25/2025 HISTORY: Acute left hand and wrist pain. Swelling. Fell. Adequate alignment of the wrist without acute fracture identified. Tendons and musculature unremarkable. No subcutaneous abnormality. Adequate alignment of the hand without acute fracture identified. Tendons and musculature unremarkable. No subcutaneous abnormality. CT/CT wrist LT wo con IMPRESSION: No acute displaced fracture of the left hand and wrist. No acute findings. Impression dictated by: Dagoberto Richmond M.D. 05/30/2025 12:34 PM Dictation Location: [place] [address] Electronically authenticated by: [id number] Y Date: 05/30/2025 12:34
--- NOTE | 2025-05-30 08:48 | CT_ITS ---
The [address] [address] Patient Name: LAISHA RICH MRN: [id number] date: 1985 Sex: F Assigned Patient Location: CT Current Patient Location: CT Accession/Order Number: [id number] Exam Date: 05/30/2025 09:00 Report Date: 05/30/2025 12:34 At the request of: ESTHELA CEDENO MD Procedure: CT hand LT wo con CT left hand and wrist TECHNIQUE: The CT exam was performed using one or more the following dose reduction techniques: Automated exposure control, adjustment of the MA and/or Kv according to patient size, or use of the iterative reconstruction technique. COMPARISON: Plain film imaging 05/25/2025 HISTORY: Acute left hand and wrist pain. Swelling. Fell. Adequate alignment of the wrist without acute fracture identified. Tendons and musculature unremarkable. No subcutaneous abnormality. Adequate alignment of the hand without acute fracture identified. Tendons and musculature unremarkable. No subcutaneous abnormality. CT/CT hand LT wo con IMPRESSION: No acute displaced fracture of the left hand and wrist. No acute findings. Impression dictated by: Dagoberto Richmond M.D. 05/30/2025 12:34 PM Dictation Location: [place] [address] Electronically authenticated by: [id number] Y Date: 05/30/2025 12:34
--- OUTSIDE RECORDS SUMMARY | 2025-05-30 08:48 | XMS_ITS | CCD ---
Author Organization [facility] Care Team Providers Care Financial Officer Name Role Phone Migel Dubon T. Unavailable Unavailable Dubon, Migel T. Unavailable Unavailable Dubon, Migel T. Unavailable Unavailable Hoy, Esthela~[phone] UNKNOWN Unavailable Unavailable Dubon, Migel T. Unavailable Unavailable Dubon, Migel T. Unavailable Unavailable Dubon, Migel T. Unavailable Unavailable Hoy, Esthela~[phone] UNKNOWN Unavailable Unavailable PAY, DR GOMEZ Attending [...] KATIE LOPEZ Date: 2022-06-16 11:[address] [facility] Covid-19 PCR (CVDTB)on 05-22 SARS-CoV-2 (COVID-19) RNA ALEJANDRINA+probe Ql (Unsp spec) Not detected Normal NOT DETECTED [facility] Comment on above: Result Comment: This test is not yet kuldip roved or cleared by the [place] FDA. When there are no FDA-approved or cleared tests available, and other criteria are met, FDA can make tests available under an emergency access mechanism called an Emergency Use Authorization (EUA). The EUA for this test is supported by the [place] of Health and Human Service's (HHS's) declaration [...] consistent with SARS-CoV-2. Performed By: #### [facility] #### [facility] [address] [place] [address] Dr. Negrita Dao Covid-19 PCR (CVDTB)on 03-21 SARS-CoV-2 (COVID-19) RNA ALEJANDRINA+probe Ql (Unsp spec) Detected Critically abnormal NOT DETECTED [facility] Comment on above: Result Comment: This test is not yet kuldip roved or cleared by the [place] FDA. When there are no FDA-approved or cleared tests available, and other criteria are met, FDA can make tests available under an emergency access mechanism called an Emergency Use Authorization (EUA). The EUA for this test is supported by the [place] of Health and Human Service's declaration that [...] used). Performed By: #### C VDTBH #### [facility] [address] [place] [address] Dr. Negrita Dao INFLUENZA A AND B AGon 04-08 INFLUENZA A AG Negative Normal NEGATIVE SEE COMMENT [facility] Comment on above: Performed By: #### INFLUAB #### [facility] [address] [place] [address] Dr. Negrita Dao INFLUENZA B AG Negative Normal NEGATIVE SEE COMMENT [facility] Comment on above: Performed By: #### INFLUAB #### [facility] [address] [place] [address] Dr. Negrita Dao INTERNAL CONTROLS Within Normal Limits Normal Within Normal Limits [facility] Comment on above: Performed By: #### INFLUAB #### [facility] [address] [place] [address] Dr. Negrita Dao Covid-19 PCR [facility]on 12-20 SARS-CoV-2 (COVID-19) RNA ALEJANDRINA+probe Ql (Unsp spec) Not detected Normal NOT DETECTED [facility] Comment on above: Result Comment: This test is not yet kuldip roved or cleared by the [place] FDA. When there are no FDA-approved or cleared tests available, and other criteria are met, FDA can make tests available under an emergency access mechanism called an Emergency Use Authorization (EUA). The EUA for this test is supported by the [place] of Health and Human Service's (HHS's) declaration [...] SARS-CoV-2. Performed By: #### C VDTBH #### [facility] [address] [place] [address] Dr. Negrita Dao INFLUENZA A AND B AGon 01-01 [facility] SEE BELOW Normal [facility] Comment on above: Result Comment: Negative for Flu A prote in angiten. Infection due to Flu A cannot be ruled out. Flu A angiten in the sample may be below the detection limit of the test. Performed By: #### I NFLUAB #### [facility] [address] [place] [address] Dr. Negrita Dao INFLUBNEG SEE BELOW Normal [facility] Comment on above: Result Comment: Negative for Flu B prote in antigen. Infection due to Flu B cannot be ruled out. Flu B antigen in the sample may be below the detection limit of the test. Performed By: #### I NFLUAB #### [facility] [address] [place] [address] Dr. Negrita Dao INFLUENZA A AG Negative Normal NEGATIVE SEE COMMENT [facility] Comment on above: Performed By: #### INFLUAB #### [facility] [address] [place] [address] Dr. Negrita Dao INFLUENZA B AG Negative Normal NEGATIVE SEE COMMENT [facility] Comment on above: Performed By: #### INFLUAB #### [facility] [address] [place] [address] Dr. Negrita Dao INTERNAL CONTROLS Within Normal Limits Normal Within Normal Limits [facility] Comment on above: Performed By: #### INFLUAB #### [facility] [address] [place] [address] Dr. Negrita Dao Covid-19 PCR (CVDTB)on 09-21 SARS-CoV-2 (COVID-19) RNA ALEJANDRINA+probe Ql (Unsp spec) Not detected Normal NOT DETECTED [facility] Comment on above: Result Comment: This test is not yet kuldip roved or cleared by the [place] FDA. When there are no FDA-approved or cleared tests available, and other criteria are met, FDA can make tests available under an emergency access mechanism called an Emergency Use Authorization (EUA). The EUA for this test is supported by the [place] of Health and Human Service's (HHS's) declaration [...] SARS-CoV-2. Performed By: #### C VDTB #### [facility] [address] [place] [address] Dr. Negrita Dao Covid-19 PCR ([facility])on 09-21 SARS-CoV-2 (COVID-19) RNA ALEJANDRINA+probe Ql (Unsp spec) Not detected Normal NOT DETECTED [facility] Comment on above: Result Comment: This test is not yet kuldip roved or cleared by the [place] FDA. When there are no FDA-approved or cleared tests available, and other criteria are met, FDA can make tests available under an emergency access mechanism called an Emergency Use Authorization (EUA). The EUA for this test is supported by the Patient Support [place] of Health and Human Service's (HHS's) declaration [...] SARS-CoV-2. Performed By: #### C VDTBH #### [facility] [address] [place] [address] Dr. Negrita Dao Progress Note-Physicianon Progress Note-Physician [...] ProblemsRotator cuff tear, right / SNOMED CT 4781026721 / ConfirmedMigraines / SNOMED CT 57942163 / Confirmed Physical Examination Intake and Output Denies significant n/v and is tolerating p.o. No qualifying data available Respiratory: Adequate air exchange with caodaism of preoperative function.. Cardiovascular: Cardiovascular function is stable and has returned to preoperative levels.. Neurologic: Pt has returned to preoperative baseline.. Review / Management Condition: Stable. Assessment Anesthetic outcome No anesthetic complications noted. Plan Transfer/ Discharge: Patient can be discharged from PACU when criteria met. Condition good. Normal [facility] Comment on above: Result Comment: Electronically Signed [...] (Selected)No Known Allergies Current medications: (Selected) Inpatient UnllyrcokwvJziqhnpY3UC 1000 mL Soln-IV 1,000 mL: 1,000 mL, [...] ProblemsRotator cuff tear, right / SNOMED CT 0138686448 / ConfirmedMigraines / SNOMED CT 44020855 / Confirmed Physical Examination Intake and Output [...] 4 . Respiratory: Adequate air exchange with caodaism of preoperative function.. Cardiovascular: Cardiovascular function is stable and has returned to preoperative levels.. Neurologic: Pt has returned to preoperative baseline.. Review / Management Condition: Stable. Assessment Anesthetic outcome No anesthetic complications noted. Plan Transfer/ Discharge: Patient can be discharged from PACU when criteria met. Condition good. Normal [facility] Coding Summary.on 10-14-2017 Coding Summary. CODING DATE: 018 [facility] STATUS: Home (Routine DC) PAYOR: Worker's Compensation [...] PROC APC STAT DESCRIPTION DOCTOR NAME DATE 80121 Arthroscopy, shoulder, Migel Dubon DO T. 10/13/2017 surgical; decompression of subacromial space with partial acromioplasty, with coracoacromial ligament (ie, arch) release, when performed (List separately in addition to code for primary procedure) RT Right side (used to identify procedures performed on the right side of the body) 10777 5113 J1 Arthroscopy, shoulder, Migel Dubon DO T. 10/13/2017 surgical; distal claviculectomy including distal articular surface (Annalisa procedure) RT Right side (used to identify procedures performed on the right side of the body) 07264 5113 J1 Arthroscopy, shoulder, Migel Dubon DO T. 10/13/2017 surgical; debridement, extensive RT Right side (used to identify procedures performed on the right side of the body) 97806 Injection, anesthetic Migel Dubon DO 10/13/2017 agent; brachial plexus, single RT Right side (used to identify procedures performed on the right side of the body) XP Separate Practitioner * 83461 Anesthesia for open or Migel Dubon DO [...] Barbosa Date Saved: 10/14/2017 04:00 pm Normal [facility] Coding Summary.on 10-13-2017 Coding Summary. CODING DATE: 018 FINAL [facility] STATUS: Home (Routine DC) PAYOR: Worker's [...] Kelley Date Saved: 10/13/2017 07:55 am Normal [facility] Inpatient Patient Summaryon 10-13-2017 Inpatient [facility] InstructionsPERSON INFORMATION Name: KATHY RICH [facility] Admitting Physician: Migel Dubon DOAttending Physician: Migel Dubon DO PCP: Carlyn Cooper MD Diagnosis: Impingement syndrome of right shoulder Comment: PATIENT EDUCATION INFORMATIONInstructions:Ling - After Your Shoulder Arthroscopy (Revised 10/19/14) (CUSTOM)Medication Leaflets:Follow up:With: Address: When: Migel Dubon [address] [place] [address] [facility] () Comments: Keep scheduled appointment MEDICATION LISTFill New Prescriptions:acetaminophen-oxycodo ne (Percocet 325 mg-5 mg Tab) 2 tab(s) By Mouth every 4 hours ICD 10# M75.41 one to two po every 4 hour prn painComment: Normal [facility] Main OR Intraoperative Recor don 10-13-2017 Main OR Intraoperative Record IntraOp Document Type FT Summary Primary Physician: Migel Dubon DO Finalized Date/Time: 10/13/17 14:31:35 Pt. Name: KATHY RICH Brando/Sex: 1985 Female Med Rec #: [id number] Physician: Migel Dubon DO Financial #: [id number] Pt. Type: A Room/Bed: [facility]19 Admit/Disch: 10/13/17 10:08:27 - Institution: Case [...] Rao RN, Una Cooper CST Role Performed Scraper Loader Operator - Primary Scraper Loader Operator - Primary Scrub - Primary Time In [...] Rashad ABDUL, Jalen Hale RN, Maddie RShabbir DRUM DRIER, Una Time Out Complete 10/13/17 12:15:00 Outcomes [...] and tissue Entry 1 Skin Integrity Intact, [place], Warm, and Skin Abnormality No Dry Outcomes [...] Met? Yes Yes Yes Last Modified By: Mendle Solorzano RN, RN, Mendel Flores RN 10/13/17 [...] Solorzano RN, Lunato RN, Mendel Wang Shea DRUM DRIER, Una Shea DRUM DRIER, Nua Outcomes Met? Yes Yes Last Modified By: [...] RN Patient Status Stable Skin. Condition Intact, [place], Warm, and Dry Airway Maintenance Oxygen in [...] AIR Quantity 1 Aid PLUS LOWER BODY [[id number]][F] Fluid/[place] [facility] Mistral warming system Setting 43 Body Site Lower anterior torso Last Modified By: Mendel Solorzano RN 10/13/17 11:48:55 Case Comments Finalized By: Iesha Barrios CST Document Signatures Signed By: Mendel Solorzano RN 10/13/17 12:57 Rashad ABDUL, Mendel Wang 10/13/17 12:57 Mendel Solorzano RN 10/13/17 12:57 Rashad ABDUL, Mendel Wang 10/13/17 12:56 Iesha Barrios CST 10/13/17 14:31 Normal [facility] Main OR PACU I Recordon 09-22 Main OR PACU I Record PACU Phase I Document Type FT Summary Primary Physician: Migel Dubon DO Finalized Date/Time: 10/13/17 13:26:50 Pt. Name: HILARIOKATHY ARENAS Brando/Sex: 1985 Female Med Rec #: [id number] Physician: Migel Dubon DO Financial #: [id number] Pt. Type: A Room/Bed: [place] [address] Admit/Disch: 10/13/17 10:08:27 - Institution: Case Times [...] By: Renea Wright RN 10/13/17 13:26 Normal [facility] Main OR PACU II Recordon Main OR PACU II Record PACU Phase II Document Type FT Summary Primary Physician: Migel Dubon DO Finalized Date/Time: 10/13/17 20:46:07 Pt. Name: KATHY RICH/Sex: 1985 Female Med Rec #: [id number] Physician: Migel Dubon DO Financial #: [id number] Pt. Type: A Room/Bed: [place] [address] Admit/Disch: 10/13/17 10:08:27 - Institution: Case Times [...] By: Celia Bernal RN 10/13/17 20:46 Normal [facility] Main OR Preoperative Recordo n 10-13-2017 Main OR Preoperative Record PreOp Document Type FT Summary Primary Physician: Migel Dubon DO Finalized Date/Time: 10/13/17 11:55:15 Pt. Name: KATHY RICH/Sex: 1985 Female Med Rec #: [id number] Physician: Migel Dubon DO Financial #: [id number] Pt. Type: A Room/Bed: [place] [address] Admit/Disch: 10/13/17 10:08:27 - Institution: Case Times [...] her perioperative plan of care Finalized By: Mdadie Rao RN Document Signatures Signed By: Maddie Rao RN 10/13/17 11:55 Normal [facility] Operative Reporton 10-13-201 8 Operative Report Date of Surgery: SURGEON: Migel Dubon D.O.SUPERVISOR ORCHARD: Irving White D.O.PREOPERATIVE DIAGNOSIS: Right shoulder Workman's Compensation strain,[employer] with rotator cuff impingement with partial rotatorcuff tearPOSTOPERATIVE DIAGNOSIS: Right shoulder Workman's Compensation strain,[employer] with rotator cuff impingement with partial rotatorcuff tearOPERATION: Right shoulder examination under anesthesia, shoulderarthroscopy with extensive glenohumeral debridement, subacromialdecompression, partial distal clavicectomyANESTHESIA: General/interscalene combinationANESTHESIOLOGIST: Carmita Joe Jr., D.ORustyESTIMATED BLOOD LOSS: MinimalHISTORY AND INDICATIONS: Kathy is a 32 year old female with an injury inthe spring of 2015 while working at [employer]. Since then she has hadcontinued pain, restriction [...] is provided. Patient is positioned on the [facility] beach chair table. Shoulder was [...] utilized for asubacromial decompression. A 90 degree [place] Arthrex ablator was utilizedfor a subtotal bursectomy [...] Specimen none. Patient conditionsatisfactory.Migel Dubon D.O.lkrDictated: 10/13/2017 #[id number]: 10/13/2017 #[id number]: Martin Jasso D.O. [facility] Comment on above: Result Comment: Electronically [...] forthe proposed procedure.Douglas Joe Jr., D.O.glsDictated: 10/13/2017 #[id number]: 10/13/2017 #[id number]: Douglas Jeo Jr., D.O. [facility] Comment on above: Result Comment: Electronically Signed By : Douglas Joe JR, DO.br\Date and Time Signed: 10/13/17 13:52 EST Patient Education - Texton 0 10-13-2017 Patient Education - Text Patient Education Materials [place]s:[place] [place] [facility] AFTER YOUR SHOULD[facility] ARTHROSCOPY1. Diet [...] arise before your appointment. Sommer Dubon, DOAccess [address] [place], [place] [phone]: 10-05 [facility] Progress Note-Physicianon Progress Note-Physician Patient: KATHY [...] Allergies None Documented Current medications: (Selected) Inpatient VwvnvkvybhzZqqasioO5DJ 1000 mL Soln-IV 1,000 mL: 1,000 mL, [...] mg-5 mg Tab [F] 1 tab(s), Oral, i0wztjooqfqaftgqn-lumwxbjhc 325 mg-5 mg Tab [F] 2 tab(s), Oral, k3bgWAIVZgzvopvbx 2 mg/mL Inj [F] 1 mg 0.5 mL, IV Push, o6zxifkmtzbibly 2 mg/mL Inj [F] 4 mg 2 mL, IV Push, q4hr Problem list: All ProblemsRotator cuff tear, right / SNOMED CT 9744217613 / ConfirmedMigraines / SNOMED CT 12283029 / Confirmed, Active Problems (2)Migraines Rotator cuff tear, right Histories Past Medical History: No active or resolved past medical history items have been selected or recorded. Family History: No family history items have been selected or recorded. Procedure history: c sections.Laparoscopic cholecystectomy (71586350).Tonsillectomy (354339500). Social History Social & Psychosocial ZeszpiLuxgfhe53/19/2018 Risk Assessment: Low RiskSubstance Abuse10/09/2017 Risk Assessment: Denies Substance JnvxsZujgqrk39/19/2018 Risk Assessment: Denies Tobacco Use. Physical Examination [...] Results review: No qualifying data available. Plan [place] [employer] Anesthesiologists (ASA) physical status classification: Class I. Anesthetic Preoperative Plan Anesthesia: General. , Regional Interscalene Block. Anesthetic plan, risks, benefits, and alternatives discussed with the patient and/or family. Pt. and/or family present and agree to proceed as planned.. Discussed the importance of abstaining from tobacco products, and offered counseling if desired. Normal [facility] Comment on above: Result Comment: Electronically Signed By : Douglas Joe JR, DO.heladio\Date and Time Signed: 10/13/17 12:21 EST CBC w/Indiceson 10-09-2017 Erythrocyte distribution width Auto Ratio (RBC) 12.8 % Normal 10.9-14.2 [facility] Comment on above: Performed By: #### [id number] ####[facility] [address] [place] [address] Erythrocytes (RBC) 3.9 E12/L Low 4.3-5.9 [facility] Comment on above: Performed By: #### [id number] ####[facility] [address] [place] [address] Hematocrit (HCT) 37.0 % Normal 34.0-46.0 [facility] Comment on above: Performed By: #### [id number] ####[facility] [address] [place] [address] Hemoglobin mass conc (Bld) 13.4 g/dL Normal 12.0-16.0 [facility] Comment on above: Performed By: #### [id number] ####[facility] [address] [place] [address] MCH 34.0 pg Normal 27.0-34.0 [facility] Comment on above: Performed By: #### [id number] ####[facility] [address] [place] [address] MCHC mass conc (RBC) 36.2 g/dL Normal 31.4-39.3 [facility] Comment on above: Performed By: #### [id number] ####[facility] [address] [place] [address] MCV 94.0 fL Normal 80.0-100.0 [facility] Comment on above: Performed By: #### [id number] ####[facility] [address] [place] [address] Platelet mean volume (PMV) 8.0 fL Normal 6.4-10.8 [facility] Comment on above: Performed By: #### [id number] ####[facility] [address] [place] [address] Platelets 214.0 E9/L Normal 150.0-500. 0 [facility] Comment on above: Performed By: #### [id number] ####[facility] [address] [place] [address] WBC (Leukocytes) 6.2 E9/L Normal 4.0-11.0 [facility] Comment on above: Performed By: #### [id number] ####[facility] [address] [place] [address] U BetaHcg Qualon 10-09-2017 CHORIOGONADOTROP IN.BETA SUBUNIT:SCNC:PT: URINE:QN: Negative Normal [facility] Comment on above: Performed By: #### [id number] ####[facility] [address] [place] [address] Nonvisit Note - PTon 017 Nonvisit Note - PT Patient did not show up for her PT eval at 1045 today. She did not call to cancel or reschedule. Normal [facility] Encounters Encounter Date Encounter Type Care Provider [...] Start: 10-13-2017 End: 10-13-2017 Amb[place] [place]: 10-09-2017 End: 10-10-2017 Ambulatory Migel Dubon [place] [place] Payers Date Payer Category Payer Worker's Compensation [id number] 1985 Unknown [id number] 2.16.84 [id number] 1985 Unknown [id number] 2.16.84 [id number] 1985 Unknown [id number] 2.16.84 [id number] 1985 Unknown [id number] 2.16.84 [id number] 1985 Unknown [id number] 2.16.84 [id number] 1985 Unknown [id number] 2.16.84 [id number] 1985 Unknown [id number] 2.16.84 [id number] 1959 Unknown 1959 Unknown [id number] Clinical Note 09-02-2021 Note Date & Type [...] by: KATIE LOPEZ Date: 2021-09-02 10:[address] [facility] Summary Purpose Family History No Family History Records FoundNo Family History Records Found Advance Directives No Advanced Directives Records FoundNo Advanced Directives Records Found Additional Source Comments INFORMATION SOURCE (unrecogn ized section and content) DATE CREATED AUTHOR 03/15/2018 [facility] DATE CREATED AUTHOR AUTHOR'S GENEVIEVE ATTRACY 06/17/2022 [facility] FOR RECORDS PERTAINING TO PATIENTS WHO ARE [...] BE BASED ON THE PRIMARY CLINICAL RECORDS. [facility] [employer] [facility]. provides no warranty or guarantee of the accuracy or completeness of information in this document.
== END 2025-05-30 08:45 | disposition home or self-care (01) ==
LOC: CT 08:44
PROVIDERS: PCP Family Medicine; Visit Provider Family Medicine
DX: M79.642 Pain in left hand (principal)
CPT/HCPCS: 73200; 76376